=== PATIENT | female | born 1995 | race Caucasian/White ===

== ENCOUNTER 2016-06-17 18:28 | Emergency (ER) | payer MEDICAID ==
[~2016-06-17] VITALS: Ht 172.7 cm; Wt 69.1 kg
[~2016-06-17 18:28] MED LIST: ANTIBIOTIC FOR ACNE; BCP TD; DEPO-PROVER400 MG/ML IM; DOXYCYCLINE 10100 MG PO; FLAGYL500 MG PO; FLEXERIL 1010 MG/TAB PO; NAPROSYN500 MG PO; NORCO 325 MG-51 TAB PO; NORCO 325 MG-7.1 TAB PO; PROVENTIL0.09 MG/A1 IH; ZOFRAN 4MG T4 MG/TAB PO; ZOLOFT 25MG25 MG PO; [UNRECOGNIZED DRUG - REMARK]
[2016-06-17 19:03] VITALS: TEMP 98
[2016-06-17] MEDS ORDERED: NORCO 325 MG-51 TAB PO (20:16)
[2016-06-17 20:28] VITALS: BP 120/81; PULSE 74
== END 2016-06-17 20:28 | disposition home or self-care (01) ==
LOC: COL.ER 18:28
DX: S76.012A Strain of muscle, fascia and tendon of left hip, initial encounter (principal); X58.XXXA Exposure to other specified factors, initial encounter
CPT/HCPCS: J1885

== ENCOUNTER 2016-07-26 20:40 | Emergency (ER) | payer MEDICAID ==
[~2016-07-26] VITALS: Ht 170.2 cm; Wt 75.5 kg
[2016-07-26 20:47] VITALS: TEMP 98.3
[2016-07-26] MEDS ORDERED: PRENATAL1 TA7 PO (20:51)
[2016-07-26 21:25] LABS: BASO % 0.4 % (0.0-2.0); EOS # 0.4 (0.0-0.7); GRAN # 4.3 (1.4-6.5); GRAN % 52.2 % (42.2-75.2); HEMATOCRIT 37.3 % (37.0-47.0); LYMPH # 2.9 (1.2-3.4); LYMPH % 35.7 % (20.0-51.0); MEAN CELL VOLUME 88 fl (80.0-100.0); MEAN CORPUSCULAR HEMOGLOBIN 31 pg (27.0-31.0); MEAN CORPUSCULAR HGB CONC 35 g/dl (33.0-37.0); MONO # 0.5 (0.1-0.6); MONO % 6.5 % (1.7-9.3); PLATELET COUNT 212 K/mm3 (130-400); RED BLOOD COUNT 4.22 M/mm3 (4.10-5.30); REDCELL DISTRIBUTION WIDTH-CV 12.2 % (11.5-14.5); WHITE BLOOD COUNT 8.2 K/mm3 (4.8-10.8)
[2016-07-26 21:30] LABS: PH 6 (5-8); SQUAMOUS EPITHELIAL 0-2 /hpf; URINE APPEARANCE Clear; URINE BACTERIA None Seen /hpf; URINE BILIRUBIN Negative (NEGATIVE); URINE BLOOD Negative (NEGATIVE); URINE COLOR Yellow; URINE GLUCOSE Negative (NEGATIVE); URINE KETONE Negative (NEGATIVE); URINE RBC 0-2 /hpf; URINE UROBILINOGEN Negative (NEGATIVE)
[2016-07-26 21:41] LABS: ALANINE AMINOTRANSFERASE 21 U/L (9-52); ALBUMIN 4.2 gm/dL (3.5-5.0); ALKALINE PHOSPHATASE 50 U/L (50-136); ANION GAP 11 mmol/L (7-16); BILIRUBIN,TOTAL 1.1 mg/dL (0.0-1.0); BLOOD UREA NITROGEN 6 mg/dL (7-17); C-REACTIVE PROTEIN < 0.5 mg/dL (0.0-0.9); CALCIUM 9.2 mg/dL (8.4-10.2); CARBON DIOXIDE 27 mmol/L (22-30); CHLORIDE 101 mmol/L (98-107); CREATININE, serum 0.71 mg/dL (0.52-1.25); GLUCOSE 75 mg/dL (74-106); POTASSIUM 3.5 mmol/L (3.4-5.0); SODIUM 139 mmol/L (137-145); TOTAL PROTEIN 7.4 gm/dL (6.4-8.2)
[2016-07-26 23:21] VITALS: BP 119/64; PULSE 88
[2016-07-27 01:47] LABS: CHLAMYDIA/TRACH by PCR Female NOT DETECTED; NEISSERIA GON by PCR Female NOT DETECTED
== END 2016-07-26 23:22 | disposition home or self-care (01) ==
LOC: COL.ER 20:40
PROVIDERS: Emergency Medicine
DX: O26.891 Other specified pregnancy related conditions, first trimester (principal); Z3A.01 Less than 8 weeks gestation of pregnancy; R10.2 Pelvic and perineal pain; O34.81 Maternal care for other abnormalities of pelvic organs, first trimester; N83.202 Unspecified ovarian cyst, left side

== ENCOUNTER 2016-08-14 21:51 | Emergency (ER) | payer MEDICAID ==
[~2016-08-14] VITALS: Ht 170.2 cm; Wt 75.5 kg
[~2016-08-14 21:51] MED LIST changes: +PRENATAL1 TA7 PO
[2016-08-14 21:54] VITALS: TEMP 98
[2016-08-14 22:28] LABS: BASO % 0.2 % (0.0-2.0); EOS # 0.2 (0.0-0.7); EOS % 1.9 % (0-4.0); GRAN # 5.5 (1.4-6.5); GRAN % 56.1 % (42.2-75.2); HEMOGLOBIN 13.5 g/dl (12.5-16.0); LYMPH # 3.5 (1.2-3.4); LYMPH % 35.7 % (20.0-51.0); MEAN CELL VOLUME 86 fl (80.0-100.0); MEAN CORPUSCULAR HEMOGLOBIN 31 pg (27.0-31.0); MEAN CORPUSCULAR HGB CONC 36 g/dl (33.0-37.0); MEAN PLATELET VOLUME 10.3 fl (7.4-10.4); MONO # 0.6 (0.1-0.6); MONO % 5.8 % (1.7-9.3); PLATELET COUNT 194 K/mm3 (130-400); REDCELL DISTRIBUTION WIDTH-CV 11.8 % (11.5-14.5); WHITE BLOOD COUNT 9.7 K/mm3 (4.8-10.8)
[2016-08-14 22:38] LABS: PH 6 (5-8); URINE APPEARANCE Clear; URINE BACTERIA None Seen /hpf; URINE BILIRUBIN Negative (NEGATIVE); URINE BLOOD Negative (NEGATIVE); URINE COLOR Yellow; URINE GLUCOSE Negative (NEGATIVE); URINE KETONE Negative (NEGATIVE); URINE RBC 0-2 /hpf
[2016-08-14 22:42] LABS: ADJUSTED CALCIUM 9.1 mg/dL (8.4-10.2); ALBUMIN 4.1 gm/dL (3.5-5.0); BILIRUBIN,TOTAL 1.1 mg/dL (0.0-1.0); CALCIUM 9.2 mg/dL (8.4-10.2); CREATININE, serum 0.6 mg/dL (0.52-1.25); POTASSIUM 3.7 mmol/L (3.4-5.0); TOTAL PROTEIN 7.3 gm/dL (6.4-8.2)
[2016-08-14 23:57] VITALS: BP 110/69; PULSE 60
[2016-08-15 01:29] LABS: CHLAMYDIA/TRACH by PCR Female NOT DETECTED; NEISSERIA GON by PCR Female NOT DETECTED
== END 2016-08-14 23:58 | disposition home or self-care (01) ==
LOC: COL.ER 21:51
PROVIDERS: Nurse Practitioner
DX: O26.891 Other specified pregnancy related conditions, first trimester (principal); R10.2 Pelvic and perineal pain; R10.31 Right lower quadrant pain; O99.511 Diseases of the respiratory system complicating pregnancy, first trimester; J45.909 Unspecified asthma, uncomplicated; O21.9 Vomiting of pregnancy, unspecified; Z3A.08 8 weeks gestation of pregnancy
CPT/HCPCS: J2550; J7030

== ENCOUNTER 2016-10-30 13:32 | Emergency (ER) | payer MEDICAID ==
[~2016-10-30] VITALS: Ht 170.2 cm; Wt 68.2 kg
[2016-10-30 13:37] VITALS: BP 109/67; PULSE 70; TEMP 98
[2016-10-30] MEDS ORDERED: MACROBID 1100 MG/CAP PO (13:41)
[2016-10-30 14:31] LABS: BASO % 0.3 % (0.0-2.0); EOS # 0.1 (0.0-0.7); EOS % 1.8 % (0-4.0); GRAN # 5.3 (1.4-6.5); GRAN % 71.5 % (42.2-75.2); HEMATOCRIT 34.2 % (37.0-47.0); HEMOGLOBIN 12.1 g/dl (12.5-16.0); LYMPH # 1.6 (1.2-3.4); LYMPH % 21.3 % (20.0-51.0); MEAN CELL VOLUME 88 fl (80.0-100.0); MEAN CORPUSCULAR HEMOGLOBIN 31 pg (27.0-31.0); MEAN CORPUSCULAR HGB CONC 35 g/dl (33.0-37.0); MEAN PLATELET VOLUME 10.5 fl (7.4-10.4); MONO # 0.4 (0.1-0.6); MONO % 4.7 % (1.7-9.3); PLATELET COUNT 180 K/mm3 (130-400); RED BLOOD COUNT 3.89 M/mm3 (4.10-5.30); WHITE BLOOD COUNT 7.4 K/mm3 (4.8-10.8)
[2016-10-30 14:33] LABS: PH 7 (5-8); SQUAMOUS EPITHELIAL 0-2 /hpf; URINE APPEARANCE Clear; URINE BACTERIA Rare /hpf; URINE BILIRUBIN Negative (NEGATIVE); URINE BLOOD Negative (NEGATIVE); URINE COLOR Yellow; URINE GLUCOSE Negative (NEGATIVE); URINE KETONE Negative (NEGATIVE); URINE RBC 0-2 /hpf; URINE UROBILINOGEN Negative (NEGATIVE); URINE WBC 0-2 /hpf
[2016-10-30 14:54] LABS: ADJUSTED CALCIUM 9.3 mg/dL (8.4-10.2); ALBUMIN 3.7 gm/dL (3.5-5.0); BILIRUBIN,TOTAL 0.9 mg/dL (0.0-1.0); CALCIUM 9.1 mg/dL (8.4-10.2); CREATININE, serum 0.51 mg/dL (0.52-1.25); POTASSIUM 3.9 mmol/L (3.4-5.0); TOTAL PROTEIN 7.1 gm/dL (6.4-8.2)
== END 2016-10-30 16:51 | disposition home or self-care (01) ==
LOC: COL.ER 13:32
PROVIDERS: Family Medicine
DX: O26.892 Other specified pregnancy related conditions, second trimester (principal); R10.2 Pelvic and perineal pain; Z3A.18 18 weeks gestation of pregnancy
CPT/HCPCS: J7030

== ENCOUNTER 2016-11-04 14:57 | Emergency (ER) | payer MEDICAID ==
[~2016-11-04] VITALS: Ht 170.2 cm; Wt 68.2 kg
[~2016-11-04 14:57] MED LIST changes: +MACROBID 1100 MG/CAP PO
[2016-11-04 15:00] VITALS: BP 130/61; TEMP 97.9
[2016-11-04 16:01] LABS: PH 7 (5-8); SQUAMOUS EPITHELIAL 0-2 /hpf; URINE APPEARANCE Hazy; URINE BACTERIA None Seen /hpf; URINE BILIRUBIN Negative (NEGATIVE); URINE BLOOD Negative (NEGATIVE); URINE COLOR Yellow; URINE GLUCOSE Negative (NEGATIVE); URINE KETONE Negative (NEGATIVE); URINE RBC 0-2 /hpf; URINE UROBILINOGEN Negative (NEGATIVE)
[2016-11-04 16:15] VITALS: PULSE 65
== END 2016-11-04 16:16 | disposition home or self-care (01) ==
LOC: COL.ER 14:57
PROVIDERS: Physician Assistant
DX: O26.892 Other specified pregnancy related conditions, second trimester (principal); R10.2 Pelvic and perineal pain; Z3A.19 19 weeks gestation of pregnancy

== ENCOUNTER 2016-11-22 18:39 | Emergency (ER) | payer MEDICAID ==
[~2016-11-22] VITALS: Ht 170.2 cm; Wt 70.0 kg
[2016-11-22 18:41] VITALS: TEMP 97.7
[2016-11-22 19:17] LABS: BASO % 0.3 % (0.0-2.0); EOS # 0.1 (0.0-0.7); EOS % 1.1 % (0-4.0); GRAN # 6.9 (1.4-6.5); GRAN % 70.8 % (42.2-75.2); HEMOGLOBIN 12.1 g/dl (12.5-16.0); LYMPH # 2.2 (1.2-3.4); LYMPH % 22.3 % (20.0-51.0); MEAN CELL VOLUME 90 fl (80.0-100.0); MEAN CORPUSCULAR HEMOGLOBIN 32 pg (27.0-31.0); MEAN CORPUSCULAR HGB CONC 36 g/dl (33.0-37.0); MEAN PLATELET VOLUME 10.7 fl (7.4-10.4); MONO # 0.5 (0.1-0.6); MONO % 5.2 % (1.7-9.3); PLATELET COUNT 199 K/mm3 (130-400); RED BLOOD COUNT 3.78 M/mm3 (4.10-5.30); REDCELL DISTRIBUTION WIDTH-CV 13.3 % (11.5-14.5); WHITE BLOOD COUNT 9.8 K/mm3 (4.8-10.8)
[2016-11-22 19:19] LABS: HEMATOCRIT 34.1 % (37.0-47.0)
[2016-11-22 19:56] LABS: ADJUSTED CALCIUM 9.3 mg/dL (8.4-10.2); ALBUMIN 3.7 gm/dL (3.5-5.0); BILIRUBIN,TOTAL 0.9 mg/dL (0.0-1.0); C-REACTIVE PROTEIN 0.6 mg/dL (0.0-0.9); CALCIUM 9.1 mg/dL (8.4-10.2); CREATININE, serum 0.51 mg/dL (0.52-1.25); POTASSIUM 3.5 mmol/L (3.4-5.0); TOTAL PROTEIN 7.2 gm/dL (6.4-8.2)
[2016-11-22 20:31] LABS: PH 5 (5-8); SQUAMOUS EPITHELIAL 0-2 /hpf; URINE APPEARANCE Clear; URINE BACTERIA None Seen /hpf; URINE BILIRUBIN Negative (NEGATIVE); URINE BLOOD Negative (NEGATIVE); URINE COLOR Yellow; URINE GLUCOSE Negative (NEGATIVE); URINE KETONE Negative (NEGATIVE); URINE RBC 0-2 /hpf; URINE UROBILINOGEN Negative (NEGATIVE)
[2016-11-22] MEDS ORDERED: FLEXERIL5 MG PO (20:50)
[2016-11-22 21:00] VITALS: BP 102/69; PULSE 68
== END 2016-11-22 21:05 | disposition home or self-care (01) ==
LOC: COL.ER 18:39
PROVIDERS: Emergency Medicine
DX: O46.92 Antepartum hemorrhage, unspecified, second trimester (principal); O26.892 Other specified pregnancy related conditions, second trimester; M54.9 Dorsalgia, unspecified; Z3A.23 23 weeks gestation of pregnancy
CPT/HCPCS: J2270; J2405; J7030

== ENCOUNTER 2016-12-01 20:18 | Outpatient (CLI) | payer MEDICAID ==
[~2016-12-01] VITALS: Ht 170.2 cm; Wt 68.6 kg
[~2016-12-01 20:18] MED LIST changes: +FLEXERIL5 MG PO
[2016-12-01 20:51] VITALS: BP 99/56; PULSE 88; TEMP 97.6
[2016-12-01] MEDS ORDERED: TYLENOL 500MG500 MG (20:55)
[2016-12-01 21:30] VITALS: BP 93/54; PULSE 71
[2016-12-01] MEDS ORDERED: FLEXERIL5 MG PO ×2 (21:51→21:52)
[2016-12-01 21:59] LABS: BASO % 0.4 % (0.0-2.0); EOS # 0.2 (0.0-0.7); EOS % 1.6 % (0-4.0); GRAN # 7.5 (1.4-6.5); GRAN % 69.4 % (42.2-75.2); HEMATOCRIT 35.7 % (37.0-47.0); HEMOGLOBIN 12.5 g/dl (12.5-16.0); LYMPH # 2.5 (1.2-3.4); LYMPH % 22.9 % (20.0-51.0); MEAN CELL VOLUME 91 fl (80.0-100.0); MEAN CORPUSCULAR HEMOGLOBIN 32 pg (27.0-31.0); MEAN CORPUSCULAR HGB CONC 35 g/dl (33.0-37.0); MEAN PLATELET VOLUME 10.4 fl (7.4-10.4); MONO # 0.6 (0.1-0.6); MONO % 5.3 % (1.7-9.3); PLATELET COUNT 206 K/mm3 (130-400); RED BLOOD COUNT 3.91 M/mm3 (4.10-5.30); REDCELL DISTRIBUTION WIDTH-CV 13.3 % (11.5-14.5); WHITE BLOOD COUNT 10.9 K/mm3 (4.8-10.8)
[2016-12-01 22:08] LABS: CALCIUM 9.2 mg/dL (8.4-10.2); CREATININE, serum 0.53 mg/dL (0.52-1.25); POTASSIUM 3.3 mmol/L (3.4-5.0)
[2016-12-01 22:19] LABS: PH 7 (5-8); URINE APPEARANCE Clear; URINE BACTERIA None Seen /hpf; URINE BILIRUBIN Negative (NEGATIVE); URINE BLOOD Negative (NEGATIVE); URINE COLOR Yellow; URINE GLUCOSE Negative (NEGATIVE); URINE KETONE Negative (NEGATIVE); URINE RBC 0-2 /hpf; URINE UROBILINOGEN Negative (NEGATIVE)
[2016-12-01 22:30] VITALS: BP 114/65; PULSE 67; TEMP 97.4
== END 2016-12-01 23:15 | disposition home or self-care (01) ==
LOC: EDSTATUS 20:18 → LDRO 20:18
PROVIDERS: Obstetrics & Gynecology
DX: O99.512 Diseases of the respiratory system complicating pregnancy, second trimester (principal); O99.89 Other specified diseases and conditions complicating pregnancy, childbirth and the puerperium; R06.02 Shortness of breath; M54.5 Low back pain; R10.9 Unspecified abdominal pain; Z3A.23 23 weeks gestation of pregnancy

== ENCOUNTER 2016-12-12 17:05 | Outpatient (CLI) | payer MEDICAID ==
[~2016-12-12] VITALS: Ht 170.2 cm; Wt 72.7 kg
[~2016-12-12 17:05] MED LIST changes: +TYLENOL 500MG500 MG
[2016-12-12] MEDS ORDERED: PYRIDIUM 100MG100 MG PO (17:12)
[2016-12-12] MEDS ORDERED: MACROBID 1100 MG/CAP PO (17:12)
[2016-12-12 17:13] VITALS: BP 106/67; PULSE 81; TEMP 97.7
== END 2016-12-12 18:00 | disposition home or self-care (01) ==
LOC: LDRO 17:05
DX: Z34.82 Encounter for supervision of other normal pregnancy, second trimester (principal); Z3A.24 24 weeks gestation of pregnancy

== ENCOUNTER 2016-12-14 21:24 | Outpatient (CLI) | payer MEDICAID ==
[~2016-12-14] VITALS: Ht 170.2 cm; Wt 72.7 kg
[~2016-12-14 21:24] MED LIST changes: +PYRIDIUM 100MG100 MG PO
[2016-12-14 22:39] LABS: BASO % 0.2 % (0.0-2.0); EOS # 0.2 (0.0-0.7); EOS % 1.9 % (0-4.0); GRAN # 6.5 (1.4-6.5); GRAN % 68.6 % (42.2-75.2); LYMPH # 2.2 (1.2-3.4); MEAN CELL VOLUME 93 fl (80.0-100.0); MEAN CORPUSCULAR HGB CONC 35 g/dl (33.0-37.0); MEAN PLATELET VOLUME 10.7 fl (7.4-10.4); MONO # 0.6 (0.1-0.6); PLATELET COUNT 206 K/mm3 (130-400); RED BLOOD COUNT 3.56 M/mm3 (4.10-5.30); REDCELL DISTRIBUTION WIDTH-CV 12.9 % (11.5-14.5); WHITE BLOOD COUNT 9.4 K/mm3 (4.8-10.8)
[2016-12-14 22:40] LABS: HEMOGLOBIN 11.4 g/dl (12.5-16.0); MEAN CORPUSCULAR HEMOGLOBIN 32 pg (27.0-31.0)
[2016-12-14 22:56] VITALS: BP 94/59; PULSE 80; TEMP 97.9
[2016-12-14 22:56] LABS: ADJUSTED CALCIUM 9.3 mg/dL (8.4-10.2); ALBUMIN 3.6 gm/dL (3.5-5.0); BILIRUBIN,TOTAL 0.6 mg/dL (0.0-1.0); CREATININE, serum 0.51 mg/dL (0.52-1.25); POTASSIUM 3.7 mmol/L (3.4-5.0)
[2016-12-14 23:05] LABS: PH 5 (5-8); SQUAMOUS EPITHELIAL 0-2 /hpf; URINE APPEARANCE Clear; URINE BACTERIA None Seen /hpf; URINE BILIRUBIN Negative (NEGATIVE); URINE BLOOD Negative (NEGATIVE); URINE COLOR Amber; URINE GLUCOSE Negative (NEGATIVE); URINE KETONE Negative (NEGATIVE); URINE RBC 0-2 /hpf; URINE UROBILINOGEN >=4.0 mg/dL (NEGATIVE)
[2016-12-14 23:38] VITALS: TEMP 98
== END 2016-12-14 23:50 | disposition home or self-care (01) ==
LOC: LDRO 21:24
PROVIDERS: Obstetrics & Gynecology
DX: O26.892 Other specified pregnancy related conditions, second trimester (principal); M54.9 Dorsalgia, unspecified; Z3A.25 25 weeks gestation of pregnancy
CPT/HCPCS: J7120

== ENCOUNTER 2016-12-25 16:01 | Outpatient (CLI) | payer MEDICAID ==
[~2016-12-25] VITALS: Ht 170.2 cm; Wt 73.6 kg
[2016-12-25 16:08] VITALS: BP 129/70; PULSE 80; TEMP 97.6
[2016-12-25 17:00] VITALS: BP 129/70; PULSE 80; TEMP 97.6
[2016-12-25 17:05] LABS: PH 6 (5-8); SQUAMOUS EPITHELIAL 0-2 /hpf; URINE APPEARANCE Hazy; URINE BACTERIA Rare /hpf; URINE BILIRUBIN Negative (NEGATIVE); URINE BLOOD Negative (NEGATIVE); URINE COLOR Yellow; URINE GLUCOSE 1+ (NEGATIVE); URINE KETONE Negative (NEGATIVE); URINE RBC 0-2 /hpf
[2016-12-25 17:30] VITALS: BP 102/61; PULSE 61
== END 2016-12-25 17:05 | disposition home or self-care (01) ==
LOC: LDRO 16:01 → LDR 16:05 → LDRO 17:05
PROVIDERS: Obstetrics & Gynecology
DX: O26.892 Other specified pregnancy related conditions, second trimester (principal); R10.9 Unspecified abdominal pain; Z3A.26 26 weeks gestation of pregnancy
CPT/HCPCS: OP; J0702

== ENCOUNTER 2016-12-26 16:21 | Outpatient (CLI) | payer MEDICAID ==
[~2016-12-26] VITALS: Ht 170.2 cm; Wt 73.6 kg
[2016-12-26 17:02] VITALS: BP 112/76; PULSE 81; TEMP 97.8
[2016-12-26 17:12] LABS: BASO % 0.2 % (0.0-2.0); EOS % 0.1 % (0-4.0); GRAN # 12.6 (1.4-6.5); GRAN % 80.2 % (42.2-75.2); LYMPH # 2.1 (1.2-3.4); LYMPH % 13.1 % (20.0-51.0); MEAN CELL VOLUME 93 fl (80.0-100.0); MEAN CORPUSCULAR HGB CONC 35 g/dl (33.0-37.0); MONO # 0.9 (0.1-0.6); MONO % 5.8 % (1.7-9.3); PLATELET COUNT 205 K/mm3 (130-400); RED BLOOD COUNT 3.68 M/mm3 (4.10-5.30); REDCELL DISTRIBUTION WIDTH-CV 12.6 % (11.5-14.5); WHITE BLOOD COUNT 15.7 K/mm3 (4.8-10.8)
[2016-12-26 17:22] LABS: HEMATOCRIT 34.3 % (37.0-47.0); HEMOGLOBIN 11.9 g/dl (12.5-16.0); MEAN CORPUSCULAR HEMOGLOBIN 32 pg (27.0-31.0)
[2016-12-26 17:24] LABS: ADJUSTED CALCIUM 9.4 mg/dL (8.4-10.2); ALBUMIN 3.7 gm/dL (3.5-5.0); BILIRUBIN,TOTAL 0.8 mg/dL (0.0-1.0); CALCIUM 9.2 mg/dL (8.4-10.2); CREATININE, serum 0.49 mg/dL (0.52-1.25); POTASSIUM 3.6 mmol/L (3.4-5.0); TOTAL PROTEIN 7.4 gm/dL (6.4-8.2)
[2016-12-26 17:30] VITALS: BP 128/64; PULSE 140
[2016-12-26 18:10] VITALS: BP 120/70; PULSE 81
== END 2016-12-26 18:15 | disposition critical access hospital (66) ==
LOC: LDRO 16:21
PROVIDERS: Obstetrics & Gynecology
DX: O62.2 Other uterine inertia (principal); Z3A.26 26 weeks gestation of pregnancy
CPT/HCPCS: J0290; J0702; J7120

== ENCOUNTER 2016-12-31 20:22 | Outpatient (CLI) | payer MEDICAID ==
[~2016-12-31] VITALS: Ht 170.2 cm; Wt 74.5 kg
[2016-12-31 20:40] VITALS: BP 110/63; PULSE 85; TEMP 97.8
[2016-12-31] MEDS ORDERED: TYLENOL 325MG325 MG PO (21:01)
[2016-12-31 21:34] VITALS: BP 110/63; PULSE 85; TEMP 97.8
== END 2016-12-31 21:10 | disposition home or self-care (01) ==
LOC: LDRO 20:22
DX: Z34.02 Encounter for supervision of normal first pregnancy, second trimester (principal); Z3A.27 27 weeks gestation of pregnancy

== ENCOUNTER 2017-01-08 17:43 | Outpatient (CLI) | payer MEDICAID ==
[~2017-01-08] VITALS: Ht 170.2 cm; Wt 73.6 kg
[~2017-01-08 17:43] MED LIST changes: +TYLENOL 325MG325 MG PO
[2017-01-08 18:05] VITALS: BP 112/65; PULSE 83
[2017-01-08 19:20] VITALS: BP 109/64; PULSE 70
== END 2017-01-08 19:45 | disposition home or self-care (01) ==
LOC: LDRO 17:43
DX: O62.9 Abnormality of forces of labor, unspecified (principal); Z3A.28 28 weeks gestation of pregnancy

== ENCOUNTER 2017-01-11 17:38 | Outpatient (CLI) | payer MEDICAID ==
[~2017-01-11] VITALS: Ht 170.2 cm; Wt 73.5 kg
[2017-01-11 18:17] VITALS: BP 111/71; PULSE 93; TEMP 98.2
== END 2017-01-11 18:40 | disposition home or self-care (01) ==
LOC: LDRO 17:38
DX: Z34.03 Encounter for supervision of normal first pregnancy, third trimester (principal); Z3A.29 29 weeks gestation of pregnancy

== ENCOUNTER 2017-03-21 16:52 | Emergency (ER) | payer MEDICAID ==
[~2017-03-21] VITALS: Ht 170.2 cm; Wt 72.7 kg
[2017-03-21 16:56] VITALS: TEMP 97.8
[2017-03-21 19:05] LABS: BASO % 0.5 % (0.0-2.0); EOS # 0.2 (0.0-0.7); EOS % 3.6 % (0-4.0); GRAN # 2.9 (1.4-6.5); HEMATOCRIT 37.1 % (37.0-47.0); HEMOGLOBIN 12.3 g/dl (12.5-16.0); LYMPH # 2.8 (1.2-3.4); MEAN CELL VOLUME 90 fl (80.0-100.0); MEAN CORPUSCULAR HEMOGLOBIN 30 pg (27.0-31.0); MEAN CORPUSCULAR HGB CONC 33 g/dl (33.0-37.0); MEAN PLATELET VOLUME 10.1 fl (7.4-10.4); MONO # 0.4 (0.1-0.6); MONO % 6.7 % (1.7-9.3); PLATELET COUNT 205 K/mm3 (130-400); RED BLOOD COUNT 4.12 M/mm3 (4.10-5.30); WHITE BLOOD COUNT 6.5 K/mm3 (4.8-10.8)
[2017-03-21 19:28] LABS: ADJUSTED CALCIUM 9.3 mg/dL (8.4-10.2); ALANINE AMINOTRANSFERASE 22 U/L (9-52); ALBUMIN 3.9 gm/dL (3.5-5.0); ALKALINE PHOSPHATASE 66 U/L (50-136); ANION GAP 8 mmol/L (7-16); BILIRUBIN,TOTAL 1.1 mg/dL (0.0-1.0); BLOOD UREA NITROGEN 7 mg/dL (7-17); C-REACTIVE PROTEIN < 0.5 mg/dL (0.0-0.9); CALCIUM 9.2 mg/dL (8.4-10.2); CARBON DIOXIDE 24 mmol/L (22-30); CHLORIDE 107 mmol/L (98-107); CREATININE, serum 0.72 mg/dL (0.52-1.25); GLUCOSE 87 mg/dL (74-106); POTASSIUM 3.9 mmol/L (3.4-5.0); SODIUM 139 mmol/L (137-145); TOTAL PROTEIN 7.3 gm/dL (6.4-8.2)
[2017-03-21 20:22] LABS: COLLECTION METHOD CLEAN CATCH
[2017-03-21 20:29] LABS: PH 6 (5-8); SQUAMOUS EPITHELIAL 0-2 /hpf; URINE APPEARANCE Clear; URINE BACTERIA None Seen /hpf; URINE BILIRUBIN Negative (NEGATIVE); URINE BLOOD Negative (NEGATIVE); URINE COLOR Yellow; URINE GLUCOSE Negative (NEGATIVE); URINE KETONE Negative (NEGATIVE); URINE LEUKOCYTE ESTERASE Negative (NEGATIVE); URINE PROTEIN(semi-quant) Negative (NEGATIVE); URINE RBC 0-2 /hpf; URINE UROBILINOGEN Negative (NEGATIVE)
[2017-03-21] MEDS ORDERED: ZOFRAN 4MG T4 MG/TAB PO (23:02)
[2017-03-21] MEDS ORDERED: NORCO 325 MG-51 TAB PO (23:02)
[2017-03-21 23:18] VITALS: BP 115/68; PULSE 56
== END 2017-03-21 23:18 | disposition home or self-care (01) ==
LOC: COL.ER 16:52
PROVIDERS: Emergency Medicine
DX: N93.9 Abnormal uterine and vaginal bleeding, unspecified (principal); R10.31 Right lower quadrant pain; F32.9 Major depressive disorder, single episode, unspecified; F41.9 Anxiety disorder, unspecified
CPT/HCPCS: J2405; J3010; J7030

== ENCOUNTER 2017-05-11 18:47 | Emergency (ER) | payer MEDICAID ==
[~2017-05-11] VITALS: Ht 170.2 cm; Wt 73.5 kg
[2017-05-11 18:48] VITALS: BP 129/79; TEMP 98
[2017-05-11] MEDS ORDERED: ZOLOFT 100MG100 MG PO (18:53)
[2017-05-11] MEDS ORDERED: [UNRECOGNIZED DRUG - REMARK] (18:55)
[2017-05-11] MEDS ORDERED: ASPERCREME1 EACH TP (19:25)
[2017-05-11] MEDS ORDERED: TYLENOL W/COD1 UDTAB PO (19:25)
[2017-05-11 19:40] VITALS: PULSE 80
== END 2017-05-11 19:42 | disposition home or self-care (01) ==
LOC: COL.ER 18:47
DX: S42.021A Displaced fracture of shaft of right clavicle, initial encounter for closed fracture (principal); J45.909 Unspecified asthma, uncomplicated; Z90.89 Acquired absence of other organs; X50.0XXA Overexertion from strenuous movement or load, initial encounter; Y92.009 Unspecified place in unspecified non-institutional (private) residence as the place of occurrence of the external cause

== ENCOUNTER 2017-06-05 22:33 | Emergency (ER) | payer SELFPAY ==
[~2017-06-05] VITALS: Ht 170.2 cm; Wt 73.6 kg
[~2017-06-05 22:33] MED LIST changes: +ASPERCREME1 EACH TP; +TYLENOL W/COD1 UDTAB PO; +ZOLOFT 100MG100 MG PO; +[UNRECOGNIZED DRUG - REMARK]
[2017-06-05 22:36] VITALS: TEMP 98.5
[2017-06-05 23:22] LABS: COLLECTION METHOD CLEAN CATCH
[2017-06-05 23:27] LABS: BASO % 0.3 % (0.0-2.0); EOS # 0.2 (0.0-0.7); EOS % 3.2 % (0-4.0); GRAN # 3.4 (1.4-6.5); GRAN % 48.2 % (42.2-75.2); HEMATOCRIT 37.8 % (37.0-47.0); HEMOGLOBIN 12.2 g/dl (12.5-16.0); LYMPH % 43.3 % (20.0-51.0); MEAN CELL VOLUME 86 fl (80.0-100.0); MEAN CORPUSCULAR HEMOGLOBIN 28 pg (27.0-31.0); MEAN CORPUSCULAR HGB CONC 32 g/dl (33.0-37.0); MEAN PLATELET VOLUME 10.4 fl (7.4-10.4); MONO # 0.3 (0.1-0.6); MONO % 4.7 % (1.7-9.3); PLATELET COUNT 233 K/mm3 (130-400); RED BLOOD COUNT 4.41 M/mm3 (4.10-5.30); REDCELL DISTRIBUTION WIDTH-CV 12.9 % (11.5-14.5)
[2017-06-05 23:32] LABS: PH 5 (5-8); URINE APPEARANCE Hazy; URINE BACTERIA None Seen /hpf; URINE BILIRUBIN Negative (NEGATIVE); URINE BLOOD Negative (NEGATIVE); URINE COLOR Yellow; URINE GLUCOSE Negative (NEGATIVE); URINE KETONE Negative (NEGATIVE); URINE LEUKOCYTE ESTERASE Trace (NEGATIVE); URINE NITRATE Negative (NEGATIVE); URINE PROTEIN(semi-quant) Negative (NEGATIVE); URINE RBC 0-2 /hpf
[2017-06-05 23:38] LABS: ALBUMIN 4.8 gm/dL (3.5-5.0); BILIRUBIN,TOTAL 0.5 mg/dL (0.0-1.0); CREATININE, serum 0.76 mg/dL (0.52-1.25); POTASSIUM 3.5 mmol/L (3.4-5.0); TOTAL PROTEIN 8.3 gm/dL (6.4-8.2)
[2017-06-06 00:15] VITALS: BP 126/68; PULSE 76
== END 2017-06-06 00:25 | disposition home or self-care (01) ==
LOC: COL.ER 22:33
PROVIDERS: Physician Assistant
DX: S42.021A Displaced fracture of shaft of right clavicle, initial encounter for closed fracture (principal); Z90.89 Acquired absence of other organs; Z98.890 Other specified postprocedural states; X50.0XXA Overexertion from strenuous movement or load, initial encounter

== ENCOUNTER 2017-06-26 23:41 | Emergency (ER) | payer SELFPAY ==
[~2017-06-26] VITALS: Ht 170.2 cm; Wt 73.6 kg
[2017-06-27 00:37] VITALS: BP 132/69; TEMP 98
[2017-06-27 02:08] VITALS: PULSE 78
== END 2017-06-27 02:15 | disposition home or self-care (01) ==
LOC: COL.ER 23:41
DX: J06.9 Acute upper respiratory infection, unspecified (principal); F32.9 Major depressive disorder, single episode, unspecified
CPT/HCPCS: J2405; J7030

== ENCOUNTER 2017-07-14 23:23 | Emergency (ER) | payer SELFPAY ==
[~2017-07-14] VITALS: Ht 170.2 cm; Wt 77.7 kg
[2017-07-14 23:26] VITALS: BP 127/69; TEMP 97.6
[2017-07-14 23:59] LABS: COLLECTION METHOD CLEAN CATCH
[2017-07-15 00:13] LABS: MUCOUS Present /lpf; PH 6 (5-8); SQUAMOUS EPITHELIAL 0-2 /hpf; URINE APPEARANCE Hazy; URINE BACTERIA None Seen /hpf; URINE BILIRUBIN Negative (NEGATIVE); URINE BLOOD Negative (NEGATIVE); URINE COLOR Yellow; URINE GLUCOSE Negative (NEGATIVE); URINE KETONE Negative (NEGATIVE); URINE LEUKOCYTE ESTERASE Trace (NEGATIVE); URINE NITRATE Negative (NEGATIVE); URINE PROTEIN(semi-quant) Negative (NEGATIVE); URINE RBC 0-2 /hpf
[2017-07-15 02:46] VITALS: PULSE 86
== END 2017-07-15 02:46 | disposition home or self-care (01) ==
LOC: COL.ER 23:23
PROVIDERS: Emergency Medicine
DX: O26.891 Other specified pregnancy related conditions, first trimester (principal); R10.31 Right lower quadrant pain; Z3A.10 10 weeks gestation of pregnancy; Z90.89 Acquired absence of other organs; Z98.890 Other specified postprocedural states

== ENCOUNTER 2017-08-02 18:21 | Emergency (ER) | payer MEDICAID ==
[~2017-08-02] VITALS: Ht 170.2 cm; Wt 77.3 kg
[2017-08-02 19:14] LABS: COLLECTION METHOD CLEAN CATCH
[2017-08-02 19:20] LABS: MUCOUS Present /lpf; PH 5 (5-8); SQUAMOUS EPITHELIAL 0-2 /hpf; URINE APPEARANCE Clear; URINE BACTERIA None Seen /hpf; URINE BILIRUBIN Negative (NEGATIVE); URINE BLOOD 3+ (NEGATIVE); URINE COLOR Yellow; URINE GLUCOSE Negative (NEGATIVE); URINE KETONE Negative (NEGATIVE); URINE LEUKOCYTE ESTERASE Negative (NEGATIVE); URINE NITRATE Negative (NEGATIVE); URINE PROTEIN(semi-quant) Negative (NEGATIVE); URINE UROBILINOGEN Negative (NEGATIVE)
[2017-08-02 19:44] LABS: BASO % 0.3 % (0.0-2.0); EOS # 0.1 (0.0-0.7); EOS % 1.5 % (0-4.0); GRAN # 4.1 (1.4-6.5); GRAN % 60.3 % (42.2-75.2); HEMOGLOBIN 10.8 g/dl (12.5-16.0); LYMPH # 2.2 (1.2-3.4); LYMPH % 32.5 % (20.0-51.0); MEAN CELL VOLUME 84 fl (80.0-100.0); MEAN CORPUSCULAR HEMOGLOBIN 28 pg (27.0-31.0); MEAN CORPUSCULAR HGB CONC 33 g/dl (33.0-37.0); MEAN PLATELET VOLUME 10.4 fl (7.4-10.4); MONO # 0.3 (0.1-0.6); MONO % 5.1 % (1.7-9.3); PLATELET COUNT 197 K/mm3 (130-400); RED BLOOD COUNT 3.89 M/mm3 (4.10-5.30); REDCELL DISTRIBUTION WIDTH-CV 14.1 % (11.5-14.5)
[2017-08-02 19:45] LABS: HEMATOCRIT 32.6 % (37.0-47.0)
[2017-08-02 19:46] VITALS: TEMP 97.8
[2017-08-02 22:18] VITALS: BP 103/71; PULSE 68
== END 2017-08-02 22:19 | disposition home or self-care (01) ==
LOC: COL.ER 18:21
PROVIDERS: Nurse Practitioner
DX: O46.91 Antepartum hemorrhage, unspecified, first trimester (principal); O99.341 Other mental disorders complicating pregnancy, first trimester; F41.9 Anxiety disorder, unspecified; F32.9 Major depressive disorder, single episode, unspecified; Z98.890 Other specified postprocedural states; Z90.89 Acquired absence of other organs; Z3A.01 Less than 8 weeks gestation of pregnancy

== ENCOUNTER 2017-08-16 15:02 | Emergency (ER) | payer MEDICAID ==
[~2017-08-16] VITALS: Ht 170.2 cm; Wt 75.0 kg
[2017-08-16 15:05] VITALS: TEMP 97.1
[2017-08-16 15:44] LABS: BASO % 0.3 % (0.0-2.0); EOS # 0.1 (0.0-0.7); GRAN # 3.9 (1.4-6.5); GRAN % 61.1 % (42.2-75.2); HEMATOCRIT 35.2 % (37.0-47.0); HEMOGLOBIN 11.8 g/dl (12.5-16.0); LYMPH % 30.4 % (20.0-51.0); MEAN CELL VOLUME 82 fl (80.0-100.0); MEAN CORPUSCULAR HEMOGLOBIN 27 pg (27.0-31.0); MEAN CORPUSCULAR HGB CONC 34 g/dl (33.0-37.0); MEAN PLATELET VOLUME 10.5 fl (7.4-10.4); MONO # 0.4 (0.1-0.6); MONO % 5.9 % (1.7-9.3); PLATELET COUNT 221 K/mm3 (130-400); RED BLOOD COUNT 4.31 M/mm3 (4.10-5.30); REDCELL DISTRIBUTION WIDTH-CV 13.6 % (11.5-14.5)
[2017-08-16 16:53] VITALS: BP 132/62; PULSE 78
== END 2017-08-16 16:53 | disposition home or self-care (01) ==
LOC: COL.ER 15:02
PROVIDERS: Physician Assistant
DX: O20.0 Threatened abortion (principal); O99.341 Other mental disorders complicating pregnancy, first trimester; F32.9 Major depressive disorder, single episode, unspecified; F41.9 Anxiety disorder, unspecified; Z3A.10 10 weeks gestation of pregnancy; Z98.890 Other specified postprocedural states

== ENCOUNTER 2017-08-23 13:40 | Outpatient (RCR) | payer OTHER ==
[2017-09-05] MEDS ORDERED: MACROBID 1100 MG/CAP PO (21:38)
[2017-09-24] MEDS ORDERED: CEPHALEXIN250 M1 PO (15:44)
[2017-09-24] MEDS ORDERED: NORCO 325 MG-51 TAB PO (15:45)
[2017-09-24] MEDS ORDERED: PHENERGAN25 MG RC (17:27)
[2017-10-10] MEDS ORDERED: PULMICORT180 MCG/Ac IH (14:39)
[2017-10-10] MEDS ORDERED: PROAIR HFA0.09 MG/AC IH (14:39)
[2017-10-10] MEDS ORDERED: ZOLOFT 100MG100 MG PO (14:39)
== END 2017-10-09 14:40 | disposition home or self-care (01) ==
LOC: WSPT 13:40
DX: Z02.71 Encounter for disability determination (principal)

== ENCOUNTER 2017-09-05 20:29 | Emergency (ER) | payer MEDICAID ==
[2017-09-05 20:31] VITALS: TEMP 98.2
[2017-09-05 21:02] LABS: BASO % 0.3 % (0.0-2.0); EOS # 0.1 (0.0-0.7); EOS % 1.5 % (0-4.0); GRAN # 4.6 (1.4-6.5); GRAN % 60.3 % (42.2-75.2); HEMOGLOBIN 12.1 g/dl (12.5-16.0); LYMPH # 2.4 (1.2-3.4); LYMPH % 31.5 % (20.0-51.0); MEAN CELL VOLUME 82 fl (80.0-100.0); MEAN CORPUSCULAR HEMOGLOBIN 27 pg (27.0-31.0); MEAN CORPUSCULAR HGB CONC 33 g/dl (33.0-37.0); MEAN PLATELET VOLUME 10.6 fl (7.4-10.4); MONO # 0.5 (0.1-0.6); MONO % 6.1 % (1.7-9.3); PLATELET COUNT 219 K/mm3 (130-400); RED BLOOD COUNT 4.43 M/mm3 (4.10-5.30); REDCELL DISTRIBUTION WIDTH-CV 13.2 % (11.5-14.5)
[2017-09-05 21:03] LABS: ALBUMIN 3.9 gm/dL (3.5-5.0); BILIRUBIN,TOTAL 0.9 mg/dL (0.0-1.0); CALCIUM 9.2 mg/dL (8.4-10.2); CREATININE, serum 0.63 mg/dL (0.52-1.25); POTASSIUM 3.5 mmol/L (3.4-5.0); TOTAL PROTEIN 8.2 gm/dL (6.4-8.2)
[2017-09-05 21:07] LABS: HEMATOCRIT 36.2 % (37.0-47.0)
[2017-09-05 21:13] LABS: COLLECTION METHOD CLEAN CATCH
[2017-09-05 21:21] LABS: MUCOUS Present /lpf; PH 5 (5-8); URINE APPEARANCE Hazy; URINE BACTERIA Rare /hpf; URINE BILIRUBIN Negative (NEGATIVE); URINE BLOOD Negative (NEGATIVE); URINE COLOR Yellow; URINE GLUCOSE Negative (NEGATIVE); URINE KETONE Trace (NEGATIVE); URINE LEUKOCYTE ESTERASE 1+ (NEGATIVE); URINE NITRATE Negative (NEGATIVE); URINE PROTEIN(semi-quant) Negative (NEGATIVE); URINE RBC 0-2 /hpf
[2017-09-05] MEDS ORDERED: MACROBID 1100 MG/CAP PO (21:38)
[2017-09-05 22:25] VITALS: BP 114/64; PULSE 72
== END 2017-09-05 22:30 | disposition home or self-care (01) ==
LOC: COL.ER 20:29
PROVIDERS: Emergency Medicine
DX: O23.41 Unspecified infection of urinary tract in pregnancy, first trimester (principal); Z3A.11 11 weeks gestation of pregnancy
CPT/HCPCS: J0696; J7030

== ENCOUNTER 2017-09-22 00:11 | Emergency (ER) | payer MEDICAID ==
[~2017-09-22] VITALS: Ht 170.2 cm; Wt 70.9 kg
[2017-09-22 00:13] VITALS: TEMP 97.6
[2017-09-22 00:38] LABS: BASO % 0.3 % (0.0-2.0); EOS # 0.3 (0.0-0.7); EOS % 3.4 % (0-4.0); GRAN % 51.3 % (42.2-75.2); HEMATOCRIT 33.2 % (37.0-47.0); HEMOGLOBIN 11.5 g/dl (12.5-16.0); LYMPH % 39.4 % (20.0-51.0); MEAN CELL VOLUME 81 fl (80.0-100.0); MEAN CORPUSCULAR HEMOGLOBIN 28 pg (27.0-31.0); MEAN CORPUSCULAR HGB CONC 35 g/dl (33.0-37.0); MEAN PLATELET VOLUME 10.7 fl (7.4-10.4); MONO # 0.4 (0.1-0.6); MONO % 5.1 % (1.7-9.3); PLATELET COUNT 215 K/mm3 (130-400); RED BLOOD COUNT 4.11 M/mm3 (4.10-5.30); REDCELL DISTRIBUTION WIDTH-CV 13.4 % (11.5-14.5)
[2017-09-22 00:49] LABS: ALBUMIN 3.7 gm/dL (3.5-5.0); BILIRUBIN,TOTAL 0.6 mg/dL (0.0-1.0); C-REACTIVE PROTEIN 0.7 mg/dL (0.0-0.9); CALCIUM 9.1 mg/dL (8.4-10.2); CREATININE, serum 0.55 mg/dL (0.52-1.25); POTASSIUM 3.8 mmol/L (3.4-5.0); TOTAL PROTEIN 7.8 gm/dL (6.4-8.2)
[2017-09-22 01:14] LABS: COLLECTION METHOD CLEAN CATCH
[2017-09-22 01:27] LABS: MUCOUS Present /lpf; PH 5 (5-8); SQUAMOUS EPITHELIAL 0-2 /hpf; URINE APPEARANCE Clear; URINE BACTERIA None Seen /hpf; URINE BILIRUBIN Negative (NEGATIVE); URINE BLOOD Negative (NEGATIVE); URINE COLOR Yellow; URINE GLUCOSE Negative (NEGATIVE); URINE KETONE Negative (NEGATIVE); URINE LEUKOCYTE ESTERASE Negative (NEGATIVE); URINE NITRATE Negative (NEGATIVE); URINE PROTEIN(semi-quant) Negative (NEGATIVE); URINE RBC 0-2 /hpf
[2017-09-22 02:36] VITALS: BP 112/70; PULSE 70
== END 2017-09-22 03:09 | disposition short-term general hospital (02) ==
LOC: COL.ER 00:11
PROVIDERS: Emergency Medicine
DX: O99.89 Other specified diseases and conditions complicating pregnancy, childbirth and the puerperium (principal); R10.2 Pelvic and perineal pain; Z3A.14 14 weeks gestation of pregnancy; Z90.89 Acquired absence of other organs
CPT/HCPCS: J1170; J2270; J2405; J3010; J7030

== ENCOUNTER 2017-09-24 15:12 | Emergency (ER) | payer MEDICAID ==
[~2017-09-24] VITALS: Ht 170.2 cm; Wt 69.1 kg
[2017-09-24 15:14] VITALS: TEMP 98.3
[2017-09-24 15:41] LABS: COLLECTION METHOD CLEAN CATCH
[2017-09-24] MEDS ORDERED: CEPHALEXIN250 M1 PO (15:44)
[2017-09-24] MEDS ORDERED: NORCO 325 MG-51 TAB PO (15:45)
[2017-09-24 15:49] LABS: BASO % 0.3 % (0.0-2.0); EOS # 0.1 (0.0-0.7); EOS % 1.3 % (0-4.0); GRAN % 59.9 % (42.2-75.2); HEMOGLOBIN 11.4 g/dl (12.5-16.0); LYMPH # 2.2 (1.2-3.4); LYMPH % 33.3 % (20.0-51.0); MEAN CELL VOLUME 81 fl (80.0-100.0); MEAN CORPUSCULAR HEMOGLOBIN 28 pg (27.0-31.0); MEAN CORPUSCULAR HGB CONC 34 g/dl (33.0-37.0); MEAN PLATELET VOLUME 10.5 fl (7.4-10.4); MONO # 0.3 (0.1-0.6); MONO % 5.1 % (1.7-9.3); PLATELET COUNT 206 K/mm3 (130-400); RED BLOOD COUNT 4.15 M/mm3 (4.10-5.30); REDCELL DISTRIBUTION WIDTH-CV 13.3 % (11.5-14.5)
[2017-09-24 15:50] LABS: HEMATOCRIT 33.6 % (37.0-47.0)
[2017-09-24 15:53] LABS: MUCOUS Present /lpf; PH 5 (5-8); URINE APPEARANCE Clear; URINE BACTERIA None Seen /hpf; URINE BILIRUBIN Negative (NEGATIVE); URINE BLOOD Negative (NEGATIVE); URINE COLOR Yellow; URINE GLUCOSE Negative (NEGATIVE); URINE KETONE 2+ (NEGATIVE); URINE LEUKOCYTE ESTERASE Negative (NEGATIVE); URINE NITRATE Negative (NEGATIVE); URINE PROTEIN(semi-quant) Negative (NEGATIVE)
[2017-09-24 15:58] LABS: ALBUMIN 3.8 gm/dL (3.5-5.0); BILIRUBIN,TOTAL 0.9 mg/dL (0.0-1.0); CALCIUM 9.2 mg/dL (8.4-10.2); CREATININE, serum 0.61 mg/dL (0.52-1.25); POTASSIUM 3.4 mmol/L (3.4-5.0); TOTAL PROTEIN 7.4 gm/dL (6.4-8.2)
[2017-09-24 16:16] LABS: C-REACTIVE PROTEIN 0.9 mg/dL (0.0-0.9)
[2017-09-24] MEDS ORDERED: PHENERGAN25 MG RC (17:27)
[2017-09-24 17:55] VITALS: BP 128/67; PULSE 68
== END 2017-09-24 17:55 | disposition home or self-care (01) ==
LOC: COL.ER 15:12
PROVIDERS: Emergency Medicine
DX: O99.89 Other specified diseases and conditions complicating pregnancy, childbirth and the puerperium (principal); R10.2 Pelvic and perineal pain; Z3A.14 14 weeks gestation of pregnancy
CPT/HCPCS: J2270; J2550; J7030

== ENCOUNTER 2017-10-10 14:28 | Emergency (ER) | payer MEDICAID ==
[~2017-10-10] VITALS: Ht 170.2 cm; Wt 69.5 kg
[~2017-10-10 14:28] MED LIST changes: +CEPHALEXIN250 M1 PO; +PHENERGAN25 MG RC
[2017-10-10 14:32] VITALS: TEMP 99.2
[2017-10-10] MEDS ORDERED: PULMICORT180 MCG/Ac IH (14:39)
[2017-10-10] MEDS ORDERED: ZOLOFT 100MG100 MG PO (14:39)
[2017-10-10] MEDS ORDERED: PROAIR HFA0.09 MG/AC IH (14:39)
[2017-10-10 15:15] LABS: BASO % 0.1 % (0.0-2.0); EOS # 0.1 (0.0-0.7); EOS % 1.8 % (0-4.0); GRAN # 4.6 (1.4-6.5); HEMOGLOBIN 11.2 g/dl (12.5-16.0); LYMPH # 2.1 (1.2-3.4); LYMPH % 29.3 % (20.0-51.0); MEAN CELL VOLUME 83 fl (80.0-100.0); MEAN CORPUSCULAR HEMOGLOBIN 28 pg (27.0-31.0); MEAN CORPUSCULAR HGB CONC 34 g/dl (33.0-37.0); MEAN PLATELET VOLUME 10.4 fl (7.4-10.4); MONO # 0.3 (0.1-0.6); MONO % 4.5 % (1.7-9.3); PLATELET COUNT 200 K/mm3 (130-400); RED BLOOD COUNT 4.03 M/mm3 (4.10-5.30)
[2017-10-10 15:25] LABS: HEMATOCRIT 33.4 % (37.0-47.0)
[2017-10-10 15:47] LABS: ALBUMIN 3.9 gm/dL (3.5-5.0); BILIRUBIN,TOTAL 0.7 mg/dL (0.0-1.0); CALCIUM 9.2 mg/dL (8.4-10.2); CREATININE, serum 0.54 mg/dL (0.52-1.25); POTASSIUM 3.8 mmol/L (3.4-5.0); TOTAL PROTEIN 7.5 gm/dL (6.4-8.2)
[2017-10-10 16:15] LABS: COLLECTION METHOD CLEAN CATCH
[2017-10-10 16:31] LABS: MUCOUS Present /lpf; PH 7 (5-8); URINE APPEARANCE Hazy; URINE BACTERIA None Seen /hpf; URINE BILIRUBIN Negative (NEGATIVE); URINE BLOOD Negative (NEGATIVE); URINE COLOR Yellow; URINE GLUCOSE Negative (NEGATIVE); URINE KETONE Negative (NEGATIVE); URINE LEUKOCYTE ESTERASE Trace (NEGATIVE); URINE NITRATE Negative (NEGATIVE); URINE PROTEIN(semi-quant) Negative (NEGATIVE); URINE RBC 0-2 /hpf; URINE UROBILINOGEN Negative (NEGATIVE)
[2017-10-10 16:59] VITALS: BP 108/71; PULSE 82
== END 2017-10-10 17:00 | disposition home or self-care (01) ==
LOC: COL.ER 14:28
PROVIDERS: Emergency Medicine
DX: O20.0 Threatened abortion (principal); Z3A.17 17 weeks gestation of pregnancy
CPT/HCPCS: J7030

== ENCOUNTER 2017-10-13 18:43 | Emergency (ER) | payer MEDICAID ==
[~2017-10-13] VITALS: Ht 170.2 cm; Wt 69.5 kg
[~2017-10-13 18:43] MED LIST changes: +PROAIR HFA0.09 MG/AC IH; +PULMICORT180 MCG/Ac IH
[2017-10-13 18:46] VITALS: TEMP 98.6
[2017-10-13 20:10] LABS: BASO % 0.2 % (0.0-2.0); EOS # 0.2 (0.0-0.7); EOS % 1.8 % (0-4.0); GRAN # 5.5 (1.4-6.5); GRAN % 66.1 % (42.2-75.2); HEMOGLOBIN 10.9 g/dl (12.5-16.0); LYMPH # 2.3 (1.2-3.4); LYMPH % 27.7 % (20.0-51.0); MEAN CELL VOLUME 83 fl (80.0-100.0); MEAN CORPUSCULAR HEMOGLOBIN 28 pg (27.0-31.0); MEAN CORPUSCULAR HGB CONC 33 g/dl (33.0-37.0); MEAN PLATELET VOLUME 10.9 fl (7.4-10.4); MONO # 0.3 (0.1-0.6); MONO % 4.1 % (1.7-9.3); PLATELET COUNT 206 K/mm3 (130-400); RED BLOOD COUNT 3.92 M/mm3 (4.10-5.30); REDCELL DISTRIBUTION WIDTH-CV 14.1 % (11.5-14.5)
[2017-10-13 20:12] LABS: HEMATOCRIT 32.7 % (37.0-47.0)
[2017-10-13 20:18] LABS: COLLECTION METHOD CLEAN CATCH
[2017-10-13 20:23] LABS: ALBUMIN 3.7 gm/dL (3.5-5.0); BILIRUBIN,TOTAL 0.6 mg/dL (0.0-1.0); C-REACTIVE PROTEIN 0.7 mg/dL (0.0-0.9); CALCIUM 9.1 mg/dL (8.4-10.2); CREATININE, serum 0.53 mg/dL (0.52-1.25); POTASSIUM 3.5 mmol/L (3.4-5.0); TOTAL PROTEIN 7.3 gm/dL (6.4-8.2)
[2017-10-13 20:23] LABS: MUCOUS Present /lpf; PH 5 (5-8); SQUAMOUS EPITHELIAL 0-2 /hpf; URINE APPEARANCE Clear; URINE BACTERIA None Seen /hpf; URINE BILIRUBIN Negative (NEGATIVE); URINE BLOOD Negative (NEGATIVE); URINE COLOR Yellow; URINE GLUCOSE Negative (NEGATIVE); URINE KETONE Negative (NEGATIVE); URINE LEUKOCYTE ESTERASE Negative (NEGATIVE); URINE NITRATE Negative (NEGATIVE); URINE PROTEIN(semi-quant) 1+ (NEGATIVE); URINE RBC 0-2 /hpf
[2017-10-13 22:05] VITALS: BP 106/63; PULSE 68
== END 2017-10-13 22:05 | disposition home or self-care (01) ==
LOC: COL.ER 18:43
PROVIDERS: Emergency Medicine
DX: O46.92 Antepartum hemorrhage, unspecified, second trimester (principal); O99.512 Diseases of the respiratory system complicating pregnancy, second trimester; J45.909 Unspecified asthma, uncomplicated; Z90.89 Acquired absence of other organs; Z3A.18 18 weeks gestation of pregnancy
CPT/HCPCS: J7030

== ENCOUNTER 2017-11-05 18:00 | Emergency (ER) | payer MEDICAID ==
[~2017-11-05] VITALS: Ht 170.2 cm; Wt 68.2 kg
[2017-11-05 18:04] VITALS: BP 108/73; TEMP 97.9
[2017-11-05 19:38] LABS: COLLECTION METHOD CATHETER
[2017-11-05 19:49] LABS: PH 6 (5-8); SQUAMOUS EPITHELIAL None Seen /hpf; URINE APPEARANCE Clear; URINE BACTERIA None Seen /hpf; URINE BILIRUBIN Negative (NEGATIVE); URINE BLOOD Negative (NEGATIVE); URINE COLOR Yellow; URINE GLUCOSE Negative (NEGATIVE); URINE KETONE Negative (NEGATIVE); URINE LEUKOCYTE ESTERASE Negative (NEGATIVE); URINE NITRATE Negative (NEGATIVE); URINE PROTEIN(semi-quant) Negative (NEGATIVE); URINE RBC 0-2 /hpf; URINE UROBILINOGEN Negative (NEGATIVE)
[2017-11-05 20:43] LABS: BASO % 0.3 % (0.0-2.0); EOS # 0.2 (0.0-0.7); EOS % 2.6 % (0-4.0); GRAN # 4.4 (1.4-6.5); GRAN % 60.4 % (42.2-75.2); HEMOGLOBIN 10.3 g/dl (12.5-16.0); LYMPH # 2.2 (1.2-3.4); LYMPH % 30.7 % (20.0-51.0); MEAN CELL VOLUME 85 fl (80.0-100.0); MEAN CORPUSCULAR HEMOGLOBIN 28 pg (27.0-31.0); MEAN CORPUSCULAR HGB CONC 33 g/dl (33.0-37.0); MEAN PLATELET VOLUME 10.8 fl (7.4-10.4); MONO # 0.4 (0.1-0.6); MONO % 5.7 % (1.7-9.3); PLATELET COUNT 216 K/mm3 (130-400); RED BLOOD COUNT 3.63 M/mm3 (4.10-5.30); REDCELL DISTRIBUTION WIDTH-CV 14.6 % (11.5-14.5)
[2017-11-05 20:44] LABS: HEMATOCRIT 30.8 % (37.0-47.0)
[2017-11-05 20:49] LABS: ALBUMIN 3.7 gm/dL (3.5-5.0); BILIRUBIN,TOTAL 0.6 mg/dL (0.0-1.0); CALCIUM 8.7 mg/dL (8.4-10.2); CREATININE, serum 0.49 mg/dL (0.52-1.25); POTASSIUM 3.7 mmol/L (3.4-5.0); TOTAL PROTEIN 7.3 gm/dL (6.4-8.2)
[2017-11-05] MEDS ORDERED: FLAGYL500 MG PO (22:21)
[2017-11-05 22:33] VITALS: PULSE 94
== END 2017-11-05 22:35 | disposition home or self-care (01) ==
LOC: COL.ER 18:00
PROVIDERS: Physician Assistant
DX: O23.592 Infection of other part of genital tract in pregnancy, second trimester (principal); N76.0 Acute vaginitis; Z3A.21 21 weeks gestation of pregnancy; Z90.89 Acquired absence of other organs; Z79.52 Long term (current) use of systemic steroids

== ENCOUNTER → 2017-11-22 | Outpatient (CLI) | payer MEDICAID ==
[~2017-11-22] VITALS: Ht 170.2 cm; Wt 73.2 kg
[~2017-11-22] MED LIST changes: +BENADRYL25 M2 PO; +MAKENA250 MG/1 M IM; +TYLENOL 500MG500 MG PO
[2017-11-22 16:34] VITALS: BP 119/70; PULSE 85; TEMP 98.1
[2017-11-22 17:00] VITALS: BP 119/70; PULSE 85; TEMP 98.1
[2017-11-22 17:07] LABS: COLLECTION METHOD CATHETER
[2017-11-22 17:16] LABS: BASO % 0.1 % (0.0-2.0); EOS # 0.1 (0.0-0.7); EOS % 1.6 % (0-4.0); GRAN % 65.3 % (42.2-75.2); HEMOGLOBIN 10.5 g/dl (12.5-16.0); LYMPH % 26.7 % (20.0-51.0); MEAN CELL VOLUME 85 fl (80.0-100.0); MEAN CORPUSCULAR HEMOGLOBIN 29 pg (27.0-31.0); MEAN CORPUSCULAR HGB CONC 34 g/dl (33.0-37.0); MEAN PLATELET VOLUME 11.1 fl (7.4-10.4); MONO # 0.5 (0.1-0.6); PLATELET COUNT 227 K/mm3 (130-400); RED BLOOD COUNT 3.68 M/mm3 (4.10-5.30); REDCELL DISTRIBUTION WIDTH-CV 14.5 % (11.5-14.5)
[2017-11-22 17:18] LABS: PH 7 (5-8); SQUAMOUS EPITHELIAL 0-2 /hpf; URINE APPEARANCE Clear; URINE BACTERIA None Seen /hpf; URINE BILIRUBIN Negative (NEGATIVE); URINE BLOOD Negative (NEGATIVE); URINE COLOR Yellow; URINE GLUCOSE Negative (NEGATIVE); URINE KETONE Negative (NEGATIVE); URINE LEUKOCYTE ESTERASE Negative (NEGATIVE); URINE NITRATE Negative (NEGATIVE); URINE PROTEIN(semi-quant) Negative (NEGATIVE); URINE RBC 0-2 /hpf; URINE UROBILINOGEN Negative (NEGATIVE)
[2017-11-22 17:19] LABS: HEMATOCRIT 31.3 % (37.0-47.0)
[2017-11-22 17:22] LABS: ALBUMIN 3.5 gm/dL (3.5-5.0); BILIRUBIN,TOTAL 0.6 mg/dL (0.0-1.0); CALCIUM 8.8 mg/dL (8.4-10.2); CREATININE, serum 0.59 mg/dL (0.52-1.25); POTASSIUM 3.5 mmol/L (3.4-5.0); TOTAL PROTEIN 7.3 gm/dL (6.4-8.2)
[2017-11-22 17:26] LABS: TRICYCLIC ANTIDEPRESS URINE NEGATIVE
== END ==
LOC: COL.ER 16:14 → LDRO 16:14 → EDSTATUS 16:22
PROVIDERS: Obstetrics & Gynecology
DX: O99.89 Other specified diseases and conditions complicating pregnancy, childbirth and the puerperium (principal); R10.9 Unspecified abdominal pain; R42 Dizziness and giddiness; Z3A.23 23 weeks gestation of pregnancy
CPT/HCPCS: J7120

== ENCOUNTER 2017-12-08 19:10 | Outpatient (CLI) | payer MEDICAID ==
[~2017-12-08] VITALS: Ht 170.2 cm; Wt 72.7 kg
[2017-12-08 19:26] VITALS: BP 119/66; PULSE 107; TEMP 98.4
[2017-12-08 21:45] VITALS: BP 109/64; PULSE 74
== END 2017-12-08 21:56 | disposition home or self-care (01) ==
LOC: LDRO 19:10 → LDR 20:03 → LDRO 21:56
DX: O99.89 Other specified diseases and conditions complicating pregnancy, childbirth and the puerperium (principal); R10.84 Generalized abdominal pain; Z3A.25 25 weeks gestation of pregnancy
CPT/HCPCS: OP

== ENCOUNTER 2017-12-10 14:09 | Outpatient (CLI) | payer MEDICAID ==
[~2017-12-10] VITALS: Ht 170.2 cm; Wt 77.3 kg
[2017-12-10 14:30] VITALS: BP 112/70; PULSE 94
[2017-12-10 15:12] LABS: COLLECTION METHOD CLEAN CATCH
[2017-12-10 15:19] LABS: BASO % 0.1 % (0.0-2.0); EOS # 0.1 (0.0-0.7); GRAN % 71.9 % (42.2-75.2); LYMPH # 1.5 (1.2-3.4); LYMPH % 21.1 % (20.0-51.0); MEAN CELL VOLUME 87 fl (80.0-100.0); MEAN CORPUSCULAR HGB CONC 32 g/dl (33.0-37.0); MEAN PLATELET VOLUME 10.8 fl (7.4-10.4); MONO # 0.4 (0.1-0.6); MONO % 5.6 % (1.7-9.3); PLATELET COUNT 199 K/mm3 (130-400)
[2017-12-10 15:20] LABS: MUCOUS Present /lpf; PH 7 (5-8); URINE APPEARANCE Clear; URINE BACTERIA None Seen /hpf; URINE BILIRUBIN Negative (NEGATIVE); URINE BLOOD Negative (NEGATIVE); URINE COLOR Yellow; URINE GLUCOSE Negative (NEGATIVE); URINE KETONE Negative (NEGATIVE); URINE LEUKOCYTE ESTERASE Negative (NEGATIVE); URINE NITRATE Negative (NEGATIVE); URINE PROTEIN(semi-quant) Negative (NEGATIVE); URINE RBC None Seen /hpf; URINE UROBILINOGEN Negative (NEGATIVE)
[2017-12-10 15:20] LABS: HEMATOCRIT 28.6 % (37.0-47.0); HEMOGLOBIN 9.1 g/dl (12.5-16.0); MEAN CORPUSCULAR HEMOGLOBIN 28 pg (27.0-31.0)
[2017-12-10 15:35] LABS: ALBUMIN 3.1 gm/dL (3.5-5.0); BILIRUBIN,TOTAL 0.5 mg/dL (0.0-1.0); CALCIUM 8.5 mg/dL (8.4-10.2); CREATININE, serum 0.51 mg/dL (0.52-1.25); POTASSIUM 3.7 mmol/L (3.4-5.0); TOTAL PROTEIN 6.5 gm/dL (6.4-8.2)
[2017-12-10 15:40] VITALS: PULSE 78
[2017-12-10 15:50] VITALS: BP 120/78; PULSE 78
== END 2017-12-10 15:55 | disposition home or self-care (01) ==
LOC: LDRO 14:09
PROVIDERS: Obstetrics & Gynecology
DX: O26.892 Other specified pregnancy related conditions, second trimester (principal); Z3A.26 26 weeks gestation of pregnancy

== ENCOUNTER 2018-01-03 13:19 | Outpatient (CLI) | payer MEDICAID ==
[2018-01-03] VITALS (13 sets, daily range): BP systolic 111–138; BP diastolic 61–78; PULSE 95–133; TEMP 97.6–98.6
[~2018-01-03] VITALS: Ht 167.6 cm; Wt 76.8 kg
[2018-01-03 15:10] LABS: COLLECTION METHOD CLEAN CATCH
[2018-01-03 15:18] LABS: BASO % 0.2 % (0.0-2.0); EOS % 0.1 % (0-4.0); GRAN # 9.4 (1.4-6.5); GRAN % 73.6 % (42.2-75.2); LYMPH # 2.5 (1.2-3.4); LYMPH % 19.6 % (20.0-51.0); MEAN CELL VOLUME 86 fl (80.0-100.0); MEAN CORPUSCULAR HGB CONC 31 g/dl (33.0-37.0); MEAN PLATELET VOLUME 11.1 fl (7.4-10.4); MONO # 0.8 (0.1-0.6); MONO % 5.9 % (1.7-9.3); PLATELET COUNT 237 K/mm3 (130-400); RED BLOOD COUNT 3.64 M/mm3 (4.10-5.30); REDCELL DISTRIBUTION WIDTH-CV 13.2 % (11.5-14.5)
[2018-01-03 15:19] LABS: HEMATOCRIT 31.4 % (37.0-47.0); HEMOGLOBIN 9.7 g/dl (12.5-16.0); MEAN CORPUSCULAR HEMOGLOBIN 27 pg (27.0-31.0)
[2018-01-03 15:23] LABS: MUCOUS Present /lpf; PH 5 (5-8); SQUAMOUS EPITHELIAL 0-2 /hpf; URINE APPEARANCE Clear; URINE BACTERIA None Seen /hpf; URINE BILIRUBIN Negative (NEGATIVE); URINE BLOOD Negative (NEGATIVE); URINE CALCIUM OXALATE CRYSTAL Present /hpf; URINE COLOR Yellow; URINE GLUCOSE 1+ (NEGATIVE); URINE KETONE Negative (NEGATIVE); URINE LEUKOCYTE ESTERASE Trace (NEGATIVE); URINE NITRATE Negative (NEGATIVE); URINE PROTEIN(semi-quant) Negative (NEGATIVE); URINE RBC 0-2 /hpf; URINE UROBILINOGEN Negative (NEGATIVE)
[2018-01-03 15:41] LABS: ALBUMIN 3.7 gm/dL (3.5-5.0); BILIRUBIN,TOTAL 0.5 mg/dL (0.0-1.0); CALCIUM 9.1 mg/dL (8.4-10.2); CREATININE, serum 0.53 mg/dL (0.52-1.25); POTASSIUM 3.7 mmol/L (3.4-5.0); TOTAL PROTEIN 7.6 gm/dL (6.4-8.2)
[2018-01-03] MEDS ORDERED: FLINTSTONES W/I1 CTB PO (17:47)
[2018-01-06] MEDS ORDERED: LEXAPRO 5MG5 MG (06:59)
== END 2018-01-03 19:00 | disposition short-term general hospital (02) ==
LOC: LDRO 13:19
PROVIDERS: Obstetrics & Gynecology
DX: O62.9 Abnormality of forces of labor, unspecified (principal); Z3A.28 28 weeks gestation of pregnancy
CPT/HCPCS: J0702; J2540; J3105; J3475; J7120

== ENCOUNTER 2018-01-11 05:10 | Inpatient (IN) | payer MEDICAID ==
[~2018-01-11] VITALS: Ht 170.2 cm; Wt 76.4 kg
[2018-01-11] VITALS (19 sets, daily range): BP systolic 97–126; BP diastolic 51–85; PULSE 63–114; TEMP 97.6–98
[~2018-01-11 05:10] MED LIST changes: +FLINTSTONES W/I1 CTB PO; +LEXAPRO 5MG5 MG
[2018-01-11 05:53] LABS: BASO % 0.2 % (0.0-2.0); EOS # 0.1 (0.0-0.7); EOS % 0.7 % (0-4.0); GRAN # 6.3 (1.4-6.5); GRAN % 66.4 % (42.2-75.2); LYMPH # 2.4 (1.2-3.4); LYMPH % 25.2 % (20.0-51.0); MEAN CELL VOLUME 84 fl (80.0-100.0); MEAN CORPUSCULAR HGB CONC 32 g/dl (33.0-37.0); MEAN PLATELET VOLUME 10.5 fl (7.4-10.4); MONO # 0.7 (0.1-0.6); PLATELET COUNT 213 K/mm3 (130-400); RED BLOOD COUNT 3.47 M/mm3 (4.10-5.30); REDCELL DISTRIBUTION WIDTH-CV 13.3 % (11.5-14.5)
[2018-01-11 05:54] LABS: HEMATOCRIT 29.3 % (37.0-47.0); HEMOGLOBIN 9.4 g/dl (12.5-16.0); MEAN CORPUSCULAR HEMOGLOBIN 27 pg (27.0-31.0)
[2018-01-12 02:35] VITALS: BP 93/52; PULSE 70; TEMP 97.6
[2018-01-12 07:00] VITALS: BP 96/58; PULSE 74; TEMP 98.4
[2018-01-12] MEDS ORDERED: IBU800 M1 PO (11:01)
[2018-01-12] MEDS ORDERED: PERCOCET 325 MG1 TA2 PO (11:02)
== END 2018-01-12 13:00 | disposition home or self-care (01) | DRG 788 ==
LOC: LDRO 05:10 → LDR 05:43 → OB 08:00
PROVIDERS: Obstetrics & Gynecology
PROC: 10D00Z1 Extraction of Products of Conception, Low, Open Approach (ICD-10-PCS; principal; 2018-01-11)
DX: O60.14X0 Preterm labor third trimester with preterm delivery third trimester, not applicable or unspecified (principal); O32.1XX0 Maternal care for breech presentation, not applicable or unspecified; Z3A.30 30 weeks gestation of pregnancy; Z37.0 Single live birth; O36.8930 Maternal care for other specified fetal problems, third trimester, not applicable or unspecified; O34.03 Maternal care for unspecified congenital malformation of uterus, third trimester; Q51.3 Bicornate uterus; J45.909 Unspecified asthma, uncomplicated; O99.344 Other mental disorders complicating childbirth; F32.9 Major depressive disorder, single episode, unspecified
CPT/HCPCS: J0690; J1200; J1885; J2270; J2370; J2405; J2590; J7120

== ENCOUNTER 2018-02-13 11:20 | Emergency (ER) | payer MEDICAID ==
[~2018-02-13] VITALS: Ht 170.2 cm; Wt 72.5 kg
[~2018-02-13 11:20] MED LIST changes: +IBU800 M1 PO; +PERCOCET 325 MG1 TA2 PO
[2018-02-13 11:30] VITALS: TEMP 98.8
[2018-02-13 12:09] LABS: COLLECTION METHOD CLEAN CATCH
[2018-02-13 12:16] LABS: MUCOUS Present /lpf; PH 6 (5-8); SQUAMOUS EPITHELIAL None Seen /hpf; URINE APPEARANCE Clear; URINE BACTERIA None Seen /hpf; URINE BILIRUBIN Negative (NEGATIVE); URINE BLOOD 2+ (NEGATIVE); URINE COLOR Yellow; URINE GLUCOSE Negative (NEGATIVE); URINE KETONE Negative (NEGATIVE); URINE LEUKOCYTE ESTERASE Negative (NEGATIVE); URINE NITRATE Negative (NEGATIVE); URINE PROTEIN(semi-quant) Negative (NEGATIVE); URINE UROBILINOGEN Negative (NEGATIVE)
[2018-02-13 12:19] LABS: BASO % 0.2 % (0.0-2.0); EOS # 0.2 (0.0-0.7); EOS % 4.3 % (0-4.0); GRAN # 2.9 (1.4-6.5); GRAN % 52.4 % (42.2-75.2); HEMATOCRIT 39.3 % (37.0-47.0); HEMOGLOBIN 11.8 g/dl (12.5-16.0); LYMPH # 2.1 (1.2-3.4); LYMPH % 38.2 % (20.0-51.0); MEAN CELL VOLUME 83 fl (80.0-100.0); MEAN CORPUSCULAR HEMOGLOBIN 25 pg (27.0-31.0); MEAN CORPUSCULAR HGB CONC 30 g/dl (33.0-37.0); MEAN PLATELET VOLUME 10.1 fl (7.4-10.4); MONO # 0.3 (0.1-0.6); MONO % 4.7 % (1.7-9.3); PLATELET COUNT 251 K/mm3 (130-400); RED BLOOD COUNT 4.75 M/mm3 (4.10-5.30); REDCELL DISTRIBUTION WIDTH-CV 13.9 % (11.5-14.5)
[2018-02-13 12:21] LABS: TRICYCLIC ANTIDEPRESS URINE NEGATIVE
[2018-02-13 12:33] LABS: ALANINE AMINOTRANSFERASE 28 U/L (9-52); ALBUMIN 4.2 gm/dL (3.5-5.0); ALKALINE PHOSPHATASE 80 U/L (50-136); ANION GAP 6 mmol/L (7-16); AST,SGOT 20 U/L (15-37); BILIRUBIN,TOTAL 0.8 mg/dL (0.0-1.0); BLOOD UREA NITROGEN 7 mg/dL (7-17); CALCIUM 9.2 mg/dL (8.4-10.2); CARBON DIOXIDE 27 mmol/L (22-30); CHLORIDE 109 mmol/L (98-107); CREATININE, serum 0.81 mg/dL (0.52-1.25); GLUCOSE 89 mg/dL (74-106); POTASSIUM 4.3 mmol/L (3.4-5.0); SODIUM 141 mmol/L (137-145); TOTAL PROTEIN 8.1 gm/dL (6.4-8.2)
[2018-02-13 12:34] LABS: ACETAMINOPHEN < 10 ug/mL (10-30); ALCOHOL(ethanol),MEDICAL < 10 mg/dL; SALICYLATE < 1.0 mg/dL
[2018-02-13 15:30] VITALS: BP 117/70; PULSE 72
== END 2018-02-13 15:37 | disposition home or self-care (01) ==
LOC: COL.ER 11:20
PROVIDERS: Physician Assistant
DX: R45.851 Suicidal ideations (principal); F32.9 Major depressive disorder, single episode, unspecified; Z98.890 Other specified postprocedural states

== ENCOUNTER 2018-03-19 18:08 | Emergency (ER) | payer MEDICAID ==
[~2018-03-19] VITALS: Ht 162.6 cm; Wt 68.2 kg
[2018-03-19 18:11] VITALS: TEMP 98.1
[2018-03-19 18:40] LABS: BASO % 0.2 % (0.0-2.0); EOS # 0.2 (0.0-0.7); EOS % 3.3 % (0-4.0); GRAN # 2.3 (1.4-6.5); GRAN % 47.7 % (42.2-75.2); HEMATOCRIT 31.5 % (37.0-47.0); HEMOGLOBIN 9.7 g/dl (12.5-16.0); LYMPH # 2.1 (1.2-3.4); LYMPH % 42.6 % (20.0-51.0); MEAN CELL VOLUME 79 fl (80.0-100.0); MEAN CORPUSCULAR HEMOGLOBIN 24 pg (27.0-31.0); MEAN CORPUSCULAR HGB CONC 31 g/dl (33.0-37.0); MEAN PLATELET VOLUME 10.2 fl (7.4-10.4); MONO # 0.3 (0.1-0.6); PLATELET COUNT 207 K/mm3 (130-400); RED BLOOD COUNT 3.99 M/mm3 (4.10-5.30); REDCELL DISTRIBUTION WIDTH-CV 14.6 % (11.5-14.5)
[2018-03-19 18:52] LABS: ALBUMIN 3.7 gm/dL (3.5-5.0); BILIRUBIN,TOTAL 0.5 mg/dL (0.0-1.0); CALCIUM 8.8 mg/dL (8.4-10.2); CREATININE, serum 0.68 mg/dL (0.52-1.25); TOTAL PROTEIN 6.8 gm/dL (6.4-8.2)
[2018-03-19 21:24] VITALS: BP 102/56; PULSE 64
== END 2018-03-19 21:30 | disposition home or self-care (01) ==
LOC: COL.ER 18:08
PROVIDERS: Family Medicine
DX: S06.0X9A Concussion with loss of consciousness of unspecified duration, initial encounter (principal); S00.93XA Contusion of unspecified part of head, initial encounter; S10.93XA Contusion of unspecified part of neck, initial encounter; S30.1XXA Contusion of abdominal wall, initial encounter; S40.012A Contusion of left shoulder, initial encounter; V80.919A Animal-rider injured in unspecified transport accident, initial encounter; Y93.52 Activity, horseback riding
CPT/HCPCS: J1885; J2405; J3010; J7030; Q9967

== ENCOUNTER 2018-05-19 21:55 | Emergency (ER) | payer MEDICAID | END 2018-05-20 02:38 | disposition home or self-care (01) | LOC: COL.ER 21:55 | DX: N83.201 Unspecified ovarian cyst, right side (principal) ==

== ENCOUNTER 2018-06-08 20:20 | Emergency (ER) | payer MEDICAID ==
[~2018-06-08] VITALS: Ht 170.2 cm; Wt 81.4 kg
[~2018-06-08 20:20] MED LIST changes: +DEPRESSION MED; +PHENERGAN 25 TA25 MG PO; +birth control
[2018-06-08 20:23] VITALS: BP 121/75; PULSE 81; TEMP 97.7
[2018-06-08 20:50] LABS: COLLECTION METHOD CLEAN CATCH
[2018-06-08 20:56] LABS: MUCOUS Present /lpf; PH 5 (5-8); SQUAMOUS EPITHELIAL 0-2 /hpf; URINE APPEARANCE Clear; URINE BACTERIA None Seen /hpf; URINE BILIRUBIN Negative (NEGATIVE); URINE BLOOD Negative (NEGATIVE); URINE COLOR Colorless; URINE GLUCOSE Negative (NEGATIVE); URINE KETONE Negative (NEGATIVE); URINE LEUKOCYTE ESTERASE Negative (NEGATIVE); URINE NITRATE Negative (NEGATIVE); URINE PROTEIN(semi-quant) Negative (NEGATIVE); URINE RBC 0-2 /hpf; URINE UROBILINOGEN Negative (NEGATIVE)
[2018-06-08 21:09] LABS: BASO % 0.5 % (0.0-2.0); EOS # 0.2 (0.0-0.7); EOS % 2.9 % (0-4.0); GRAN % 48.2 % (42.2-75.2); HEMOGLOBIN 10.7 g/dl (12.5-16.0); LYMPH # 2.6 (1.2-3.4); LYMPH % 41.9 % (20.0-51.0); MEAN CELL VOLUME 79 fl (80.0-100.0); MEAN CORPUSCULAR HEMOGLOBIN 24 pg (27.0-31.0); MEAN CORPUSCULAR HGB CONC 31 g/dl (33.0-37.0); MEAN PLATELET VOLUME 10.5 fl (7.4-10.4); MONO # 0.4 (0.1-0.6); MONO % 6.2 % (1.7-9.3); PLATELET COUNT 245 K/mm3 (130-400); REDCELL DISTRIBUTION WIDTH-CV 15.1 % (11.5-14.5)
[2018-06-08 21:11] LABS: HEMATOCRIT 34.8 % (37.0-47.0)
[2018-06-08 21:21] LABS: ALANINE AMINOTRANSFERASE 36 U/L (9-52); ALBUMIN 4.2 gm/dL (3.5-5.0); ALKALINE PHOSPHATASE 80 U/L (50-136); ANION GAP 8 mmol/L (7-16); AST,SGOT 32 U/L (15-37); BILIRUBIN,TOTAL 0.6 mg/dL (0.0-1.0); BLOOD UREA NITROGEN 11 mg/dL (7-17); CARBON DIOXIDE 25 mmol/L (22-30); CHLORIDE 105 mmol/L (98-107); CREATININE, serum 0.78 mg/dL (0.52-1.25); GLUCOSE 89 mg/dL (74-106); SODIUM 139 mmol/L (137-145); TOTAL PROTEIN 7.7 gm/dL (6.4-8.2)
[2018-06-08 21:33] LABS: C-REACTIVE PROTEIN < 0.5 mg/dL (0.0-0.9)
== END 2018-06-08 22:55 | disposition home or self-care (01) ==
LOC: COL.ER 20:20
PROVIDERS: Nurse Practitioner
DX: R10.31 Right lower quadrant pain (principal); F32.9 Major depressive disorder, single episode, unspecified

== ENCOUNTER 2018-06-16 18:25 | Observation (INO) | payer MEDICAID ==
[~2018-06-16] VITALS: Ht 170.2 cm; Wt 79.9 kg
[2018-06-16 19:44] LABS: BASO % 0.4 % (0.0-2.0); EOS # 0.2 (0.0-0.7); GRAN # 2.6 (1.4-6.5); GRAN % 45.6 % (42.2-75.2); LYMPH # 2.5 (1.2-3.4); LYMPH % 43.9 % (20.0-51.0); MEAN CELL VOLUME 80 fl (80.0-100.0); MEAN CORPUSCULAR HEMOGLOBIN 24 pg (27.0-31.0); MEAN CORPUSCULAR HGB CONC 30 g/dl (33.0-37.0); MEAN PLATELET VOLUME 10.7 fl (7.4-10.4); MONO # 0.4 (0.1-0.6); MONO % 6.9 % (1.7-9.3); PLATELET COUNT 237 K/mm3 (130-400); RED BLOOD COUNT 4.54 M/mm3 (4.10-5.30); REDCELL DISTRIBUTION WIDTH-CV 15.7 % (11.5-14.5)
[2018-06-16 19:46] LABS: HEMATOCRIT 36.4 % (37.0-47.0)
[2018-06-16 19:55] LABS: ALANINE AMINOTRANSFERASE 37 U/L (9-52); ALBUMIN 4.1 gm/dL (3.5-5.0); ALKALINE PHOSPHATASE 69 U/L (50-136); ANION GAP 6 mmol/L (7-16); AST,SGOT 41 U/L (15-37); BILIRUBIN,TOTAL 0.9 mg/dL (0.0-1.0); BLOOD UREA NITROGEN 8 mg/dL (7-17); CALCIUM 8.8 mg/dL (8.4-10.2); CARBON DIOXIDE 27 mmol/L (22-30); CHLORIDE 108 mmol/L (98-107); CREATININE, serum 0.71 mg/dL (0.52-1.25); GLUCOSE 87 mg/dL (74-106); POTASSIUM 4.2 mmol/L (3.4-5.0); SODIUM 140 mmol/L (137-145); TOTAL PROTEIN 7.7 gm/dL (6.4-8.2)
[2018-06-16 20:02] LABS: C-REACTIVE PROTEIN < 0.5 mg/dL (0.0-0.9)
[2018-06-16 22:25] VITALS: BP 111/69; PULSE 68; TEMP 97.7
--- NOTE | 2018-06-16 22:25 | NUR ---
report received from YVROSE Rose from ED.
--- NOTE | 2018-06-16 22:26 | NUR ---
pt transported to room 318 via wheelchair.
[2018-06-16] MEDS ORDERED: DESYREL 50MG50 MG PO (22:49)
[2018-06-16] MEDS ORDERED: BRINTELLIX10 PO (22:50)
--- NOTE | 2018-06-16 23:00 | NUR ---
Assessmnet completed.patient awake sitting up at edge of bed eating a sandwich.patient able to swallow without any complaints.A/ox3.denies pain.breathing even and unlabored.LSCTA.pt c/o right sided weakness and numbness.right sided arm and lower extremity noted to have trace of movement.slurred speech noted.neuros completed and documented.patient denies further needs.INT to LAC.bed alarm on.MRI,neuro cons and echo ordered.patient updated on tests to be done in morning per orders.VSS.will continue to monitor.call light in reach
--- NOTE | 2018-06-17 03:31 | NUR ---
pt laying in bed sleeping.Vitals signs remain stable.Neuros unchanged.pt denies needs
--- NOTE | 2018-06-17 04:43 | NUR ---
This Nurse help pt with toileting to bedside commode.pt was able to assist.
[2018-06-17 05:24] VITALS: BP 108/51; PULSE 60; TEMP 97.8
[2018-06-17 08:35] LABS: BASO % 0.4 % (0.0-2.0); EOS # 0.2 (0.0-0.7); EOS % 3.4 % (0-4.0); GRAN % 39.2 % (42.2-75.2); HEMOGLOBIN 10.2 g/dl (12.5-16.0); LYMPH # 2.6 (1.2-3.4); LYMPH % 50.5 % (20.0-51.0); MEAN CELL VOLUME 79 fl (80.0-100.0); MEAN CORPUSCULAR HEMOGLOBIN 24 pg (27.0-31.0); MEAN CORPUSCULAR HGB CONC 30 g/dl (33.0-37.0); MEAN PLATELET VOLUME 10.3 fl (7.4-10.4); MONO # 0.3 (0.1-0.6); MONO % 6.3 % (1.7-9.3); PLATELET COUNT 202 K/mm3 (130-400); RED BLOOD COUNT 4.23 M/mm3 (4.10-5.30); REDCELL DISTRIBUTION WIDTH-CV 15.7 % (11.5-14.5)
[2018-06-17 08:37] LABS: HEMATOCRIT 33.6 % (37.0-47.0)
[2018-06-17 08:45] LABS: CALCIUM 8.5 mg/dL (8.4-10.2); CREATININE, serum 0.71 mg/dL (0.52-1.25); POTASSIUM 3.9 mmol/L (3.4-5.0)
--- NOTE | 2018-06-17 08:48 | NUR ---
PT IN BED WITH HOB ELEVATED. PT'S SPEECH IS SLURRED, BUT STILL UNDERSTANDABLE AND SPEECH LOGICAL. PT'S HAS RIGHT SIDED WEAKNESS. PT ADVISED THAT SHE CANNOT DO AN MRI WITHOUT ATIVAN BECAUSE SHE HAS ANXIETY. PT C/O HEADACHE RATED AT 7/10. CALLED DR. MCCLELLAN AND HE ADVISED HE WILL PUT IN ORDERS FOR ATIVAN PO. CALLED PROSPER MILLER AND SHE ADVISED THAT SHE IS ABLE TO SWALLOW PILLS AND HAVE A REGULAR DIET. CALL LIGHT WITHIN REACH.
[2018-06-17 11:32] VITALS: BP 99/71; PULSE 102; TEMP 97.9
--- NOTE | 2018-06-17 13:31 | NUR ---
ASSISTED PT TO BEDSIDE COMMODE, DISPLAYS WEAKNESS ON RIGHT SIDE. PT WAS ASSISTED BACK INTO BED X2. PT RAISED RIGHT ARM OFF OF BED, WHEN ASKED PT IF SHE COULD MOVE HER RIGHT ARM SHE STATED, "NO, ONLY IF I MOVE IT WITH MY LEFT HAND." PT DENIES PAIN OR DISCOMFORT AT THIS TIME. NO FURTHER NEEDS. CALL LIGHT WITHIN REACH.
[2018-06-17 15:47] VITALS: BP 114/71; PULSE 64; TEMP 101.2
--- NOTE | 2018-06-17 15:49 | NUR ---
SW attended clinical rounds to discuss discharge planning. Patient's and children were also present. Patient lives independently at home with her and children. Patient's PCP is Dr Hoyos and she obtains prescriptions from [facility]. Patient does not use any home health services or DME at home. Patient sees Leonid at [facility] for depression and anxiety. She is also on medications for depression and anxiety. Patient is tearful because she does not like being away from her kids and would like to go home. Doctor is understanding but would also like patient to be seen by a neurologist and reports that patient may be able to discharge tomorrow. DAVE contacted Leonid from [facility] about seeing if she could be seen while she is in the hospital. Leonid questioned if patient is suicidal or having suicidal thoughts. DAVE reported she is not but doctor wondered if someone from [facility] could meet with patient. Leonid reports she cannot meet with patient but she will pass the message onto the crisis staff. She also reports they will likley not be able to meet with patient while she is in the hospital but they suggest making a follow up appointment after she is discharged. Patient also reported her insurance will be running out at the end of the month. SW reported she can contact the financial counselor and have them meet with her about her insurance. DAVE does not anticipate any discharge needs but will continue to follow.
--- NOTE | 2018-06-17 17:06 | NUR ---
PT IN ROOM WITH AND CHILDREN. PT ADVISED THAT SHE IS DOING A LOT BETTER AND JUST WANTS TO GO HOME. PT ADVISED THAT SHE IS ABLE TO WALK WITHOUT A WALKER OR CANE, AND ABLE TO FULLY USE HER RIGHT ARM AGAIN. ADVISED DR. SHELTON OF PT'S REQUEST. DR. SHELTON WENT INTO ROOM AND SPOKE WITH PT ABOUT HER WEAKNESS. PT ADVISED DR. SHELTON THAT SHE GOT BLOOD FLOW BACK TO HER RIGHT LEG WHEN SHE GOT UP WITH PHYSICAL THERAPY. DR. SHELTON GAVE ORDERS TO DISCHARGE.
--- NOTE | 2018-06-17 17:20 | NUR ---
REMOVED IV FROM LEFT AC, CATHETER INTACT, PRESSURE APPLIED TILL BLEEDING STOPPED, AND PROTECTIVE DRSG APPLIED TO SITE. ALSO, REMOVED TELEMETRY. PT WAS GIVEN DISCHARGE INSTRUCTIONS AND PT VERBALIZED UNDERSTANDING. PT TOOK ALL PERSONAL BELONGINGS WITH HER. PT WAS TAKEN DOWN VIA WHEELCHAIR TO PRIVATE VEHICLE AND LEFT WITH AND CHILDREN.
== END 2018-06-17 17:20 | disposition home or self-care (01) ==
LOC: COL.ER 18:25 → MEDICAL 21:13
PROVIDERS: Emergency Medicine; ADMIT Internal Medicine
DX: R53.1 Weakness (principal); R47.81 Slurred speech; R07.9 Chest pain, unspecified; F32.9 Major depressive disorder, single episode, unspecified; F41.9 Anxiety disorder, unspecified; J45.909 Unspecified asthma, uncomplicated; Z83.3 Family history of diabetes mellitus; Z91.040 Latex allergy status
CPT/HCPCS: G0378; J1644

== ENCOUNTER 2018-07-09 22:19 | Emergency (ER) | payer MEDICAID ==
[~2018-07-09] VITALS: Ht 170.2 cm; Wt 81.8 kg
[~2018-07-09 22:19] MED LIST changes: +BRINTELLIX10 PO; +DESYREL 50MG50 MG PO
[2018-07-09 22:20] VITALS: TEMP 97
[2018-07-09 22:45] LABS: COLLECTION METHOD CLEAN CATCH
[2018-07-09 22:48] LABS: BASO % 0.3 % (0.0-2.0); EOS # 0.1 (0.0-0.7); EOS % 0.9 % (0-4.0); GRAN # 7.6 (1.4-6.5); GRAN % 83.4 % (42.2-75.2); HEMOGLOBIN 11.1 g/dl (12.5-16.0); LYMPH # 1.2 (1.2-3.4); LYMPH % 13.1 % (20.0-51.0); MEAN CELL VOLUME 81 fl (80.0-100.0); MEAN CORPUSCULAR HEMOGLOBIN 25 pg (27.0-31.0); MEAN CORPUSCULAR HGB CONC 31 g/dl (33.0-37.0); MEAN PLATELET VOLUME 9.9 fl (7.4-10.4); MONO # 0.2 (0.1-0.6); PLATELET COUNT 218 K/mm3 (130-400); RED BLOOD COUNT 4.46 M/mm3 (4.10-5.30); REDCELL DISTRIBUTION WIDTH-CV 15.7 % (11.5-14.5)
[2018-07-09 22:50] LABS: HEMATOCRIT 36.1 % (37.0-47.0)
[2018-07-09 22:53] LABS: MUCOUS Present /lpf; PH 7 (5-8); URINE APPEARANCE Clear; URINE BACTERIA None Seen /hpf; URINE BILIRUBIN Negative (NEGATIVE); URINE BLOOD Negative (NEGATIVE); URINE COLOR Yellow; URINE GLUCOSE Negative (NEGATIVE); URINE KETONE Negative (NEGATIVE); URINE LEUKOCYTE ESTERASE Negative (NEGATIVE); URINE NITRATE Negative (NEGATIVE); URINE PROTEIN(semi-quant) 1+ (NEGATIVE); URINE RBC 0-2 /hpf; URINE UROBILINOGEN Negative (NEGATIVE)
[2018-07-09 23:42] LABS: ALBUMIN 4.1 gm/dL (3.5-5.0); BILIRUBIN,TOTAL 0.7 mg/dL (0.0-1.0); CALCIUM 8.7 mg/dL (8.4-10.2); CREATININE, serum 0.85 (0.52-1.25); POTASSIUM 3.7 mmol/L (3.4-5.0); TOTAL PROTEIN 7.6 gm/dL (6.4-8.2)
[2018-07-10 03:38] VITALS: BP 105/57; PULSE 112
== END 2018-07-10 03:38 | disposition home or self-care (01) ==
LOC: COL.ER 22:19
PROVIDERS: Family Medicine; Nurse Practitioner
DX: R55 Syncope and collapse (principal); F32.9 Major depressive disorder, single episode, unspecified; F41.9 Anxiety disorder, unspecified; J45.909 Unspecified asthma, uncomplicated; Z91.040 Latex allergy status; Z79.51 Long term (current) use of inhaled steroids; Z87.81 Personal history of (healed) traumatic fracture
CPT/HCPCS: J1885; J7030; Q9967

== ENCOUNTER 2018-09-15 23:11 | Emergency (ER) | payer SELFPAY ==
[~2018-09-15] VITALS: Ht 170.2 cm; Wt 83.2 kg
[2018-09-15 23:31] LABS: BASO % 0.5 % (0.0-2.0); EOS # 0.2 (0.0-0.7); EOS % 2.6 % (0-4.0); GRAN # 2.4 (1.4-6.5); GRAN % 39.6 % (42.2-75.2); HEMATOCRIT 37.9 % (37.0-47.0); HEMOGLOBIN 11.9 g/dl (12.5-16.0); LYMPH % 48.8 % (20.0-51.0); MEAN CELL VOLUME 82 fl (80.0-100.0); MEAN CORPUSCULAR HEMOGLOBIN 26 pg (27.0-31.0); MEAN CORPUSCULAR HGB CONC 31 g/dl (33.0-37.0); MEAN PLATELET VOLUME 10.9 fl (7.4-10.4); MONO # 0.5 (0.1-0.6); MONO % 8.3 % (1.7-9.3); PLATELET COUNT 193 K/mm3 (130-400); RED BLOOD COUNT 4.61 M/mm3 (4.10-5.30); REDCELL DISTRIBUTION WIDTH-CV 15.5 % (11.5-14.5)
[2018-09-15 23:45] LABS: ALANINE AMINOTRANSFERASE 15 U/L (9-52); ALBUMIN 4.3 gm/dL (3.5-5.0); ALKALINE PHOSPHATASE 74 U/L (50-136); ANION GAP 10 mmol/L (7-16); AST,SGOT 30 U/L (15-37); BILIRUBIN,TOTAL 0.5 mg/dL (0.0-1.0); BLOOD UREA NITROGEN 10 mg/dL (7-17); CALCIUM 9.4 mg/dL (8.4-10.2); CARBON DIOXIDE 23 mmol/L (22-30); CHLORIDE 107 mmol/L (98-107); CREATININE, serum 0.81 (0.52-1.25); GLUCOSE 79 mg/dL (74-106); LIPASE 37 U/L (23-300); SODIUM 140 mmol/L (137-145); TOTAL PROTEIN 8.2 gm/dL (6.4-8.2)
[2018-09-15 23:46] LABS: C-REACTIVE PROTEIN < 0.5 mg/dL (0.0-0.9)
[2018-09-16 00:56] LABS: COLLECTION METHOD CLEAN CATCH
[2018-09-16 01:09] VITALS: TEMP 97
[2018-09-16 01:11] LABS: PH 7 (5-8); SQUAMOUS EPITHELIAL 0-2 /hpf; URINE APPEARANCE Clear; URINE BACTERIA None Seen /hpf; URINE BILIRUBIN Negative (NEGATIVE); URINE BLOOD Negative (NEGATIVE); URINE COLOR Straw; URINE GLUCOSE Negative (NEGATIVE); URINE KETONE Negative (NEGATIVE); URINE LEUKOCYTE ESTERASE Trace (NEGATIVE); URINE NITRATE Negative (NEGATIVE); URINE PROTEIN(semi-quant) Negative (NEGATIVE); URINE RBC 0-2 /hpf; URINE UROBILINOGEN Negative (NEGATIVE)
[2018-09-16] MEDS ORDERED: ZOFRAN 4MG T4 MG/TAB PO (02:31)
[2018-09-16 02:40] VITALS: BP 110/69; PULSE 66
== END 2018-09-16 02:40 | disposition home or self-care (01) ==
LOC: COL.ER 23:11
PROVIDERS: Emergency Medicine
DX: R10.11 Right upper quadrant pain (principal); R07.81 Pleurodynia; R11.0 Nausea; F32.9 Major depressive disorder, single episode, unspecified; Z87.42 Personal history of other diseases of the female genital tract; Z79.51 Long term (current) use of inhaled steroids
CPT/HCPCS: J1630; J1885; J2405; J3010

== ENCOUNTER 2018-10-04 14:41 | Emergency (ER) | payer SELFPAY ==
[~2018-10-04] VITALS: Ht 170.2 cm; Wt 81.7 kg
[2018-10-04 15:05] VITALS: TEMP 98
[2018-10-04 16:11] LABS: COLLECTION METHOD CLEAN CATCH
[2018-10-04 16:21] LABS: BASO % 0.3 % (0.0-2.0); EOS # 0.2 (0.0-0.7); EOS % 2.6 % (0-4.0); GRAN % 49.5 % (42.2-75.2); HEMOGLOBIN 12.7 g/dl (12.5-16.0); LYMPH # 2.5 (1.2-3.4); LYMPH % 41.2 % (20.0-51.0); MEAN CELL VOLUME 84 fl (80.0-100.0); MEAN CORPUSCULAR HEMOGLOBIN 26 pg (27.0-31.0); MEAN CORPUSCULAR HGB CONC 31 g/dl (33.0-37.0); MEAN PLATELET VOLUME 10.7 fl (7.4-10.4); MONO # 0.4 (0.1-0.6); MONO % 6.1 % (1.7-9.3); PLATELET COUNT 234 K/mm3 (130-400); RED BLOOD COUNT 4.91 M/mm3 (4.10-5.30); REDCELL DISTRIBUTION WIDTH-CV 15.2 % (11.5-14.5)
[2018-10-04 16:24] LABS: MUCOUS Present /lpf; PH 5 (5-8); URINE APPEARANCE Hazy; URINE BACTERIA None Seen /hpf; URINE BILIRUBIN Negative (NEGATIVE); URINE BLOOD Negative (NEGATIVE); URINE COLOR Yellow; URINE GLUCOSE Negative (NEGATIVE); URINE KETONE Negative (NEGATIVE); URINE LEUKOCYTE ESTERASE Negative (NEGATIVE); URINE NITRATE Negative (NEGATIVE); URINE PROTEIN(semi-quant) Negative (NEGATIVE); URINE RBC 0-2 /hpf; URINE UROBILINOGEN Negative (NEGATIVE)
[2018-10-04 16:36] LABS: ALANINE AMINOTRANSFERASE < 6 U/L (9-52); ALBUMIN 4.6 gm/dL (3.5-5.0); ALKALINE PHOSPHATASE 81 U/L (50-136); ANION GAP 12 mmol/L (7-16); AST,SGOT 30 U/L (15-37); BILIRUBIN,TOTAL 0.7 mg/dL (0.0-1.0); BLOOD UREA NITROGEN 9 mg/dL (7-17); CALCIUM 9.6 mg/dL (8.4-10.2); CARBON DIOXIDE 26 mmol/L (22-30); CHLORIDE 105 mmol/L (98-107); CREATININE, serum 0.72 (0.52-1.25); GLUCOSE 82 mg/dL (74-106); POTASSIUM 3.9 mmol/L (3.4-5.0); SODIUM 143 mmol/L (137-145); TOTAL PROTEIN 8.8 gm/dL (6.4-8.2)
[2018-10-04 16:39] LABS: C-REACTIVE PROTEIN < 0.5 mg/dL (0.0-0.9)
[2018-10-04] MEDS ORDERED: CEFTIN500 MG PO (16:56)
[2018-10-04 17:16] VITALS: BP 108/70; PULSE 56
== END 2018-10-04 17:17 | disposition home or self-care (01) ==
LOC: COL.ER 14:41
PROVIDERS: Physician Assistant
DX: N39.0 Urinary tract infection, site not specified (principal); Z98.890 Other specified postprocedural states
CPT/HCPCS: J1885; J2270; J2405; J7030

== ENCOUNTER 2018-10-06 13:26 | Emergency (ER) | payer SELFPAY ==
[~2018-10-06] VITALS: Ht 170.2 cm; Wt 84.3 kg
[~2018-10-06 13:26] MED LIST changes: +CEFTIN500 MG PO
[2018-10-06 13:55] VITALS: TEMP 97.6
[2018-10-06 14:44] LABS: COLLECTION METHOD CLEAN CATCH
[2018-10-06 15:08] LABS: PH 6 (5-8); URINE APPEARANCE Hazy; URINE BACTERIA Rare /hpf; URINE BILIRUBIN Negative (NEGATIVE); URINE BLOOD Negative (NEGATIVE); URINE COLOR Yellow; URINE GLUCOSE Negative (NEGATIVE); URINE KETONE Negative (NEGATIVE); URINE LEUKOCYTE ESTERASE 1+ (NEGATIVE); URINE NITRATE Positive (NEGATIVE); URINE PROTEIN(semi-quant) Negative (NEGATIVE); URINE UROBILINOGEN Negative (NEGATIVE)
[2018-10-06 15:09] LABS: TRICYCLIC ANTIDEPRESS URINE NEGATIVE
[2018-10-06 15:21] LABS: BASO % 0.2 % (0.0-2.0); EOS # 0.1 (0.0-0.7); EOS % 2.1 % (0-4.0); GRAN # 2.7 (1.4-6.5); GRAN % 49.5 % (42.2-75.2); HEMATOCRIT 37.2 % (37.0-47.0); HEMOGLOBIN 11.6 g/dl (12.5-16.0); LYMPH # 2.3 (1.2-3.4); LYMPH % 42.2 % (20.0-51.0); MEAN CELL VOLUME 83 fl (80.0-100.0); MEAN CORPUSCULAR HEMOGLOBIN 26 pg (27.0-31.0); MEAN CORPUSCULAR HGB CONC 31 g/dl (33.0-37.0); MONO # 0.3 (0.1-0.6); MONO % 5.8 % (1.7-9.3); PLATELET COUNT 212 K/mm3 (130-400); RED BLOOD COUNT 4.46 M/mm3 (4.10-5.30)
[2018-10-06 15:29] LABS: ACETAMINOPHEN < 10 ug/mL (10-30); ALANINE AMINOTRANSFERASE 13 U/L (9-52); ALBUMIN 3.9 gm/dL (3.5-5.0); ALCOHOL(ethanol),MEDICAL < 10 mg/dL; ALKALINE PHOSPHATASE 66 U/L (50-136); ANION GAP 7 mmol/L (7-16); AST,SGOT 26 U/L (15-37); BILIRUBIN,TOTAL 0.5 mg/dL (0.0-1.0); BLOOD UREA NITROGEN 9 mg/dL (7-17); CALCIUM 9.1 mg/dL (8.4-10.2); CARBON DIOXIDE 28 mmol/L (22-30); CHLORIDE 107 mmol/L (98-107); CREATININE, serum 0.79 (0.52-1.25); GLUCOSE 87 mg/dL (74-106); POTASSIUM 4.2 mmol/L (3.4-5.0); SALICYLATE < 1.0 mg/dL; SODIUM 142 mmol/L (137-145); TOTAL PROTEIN 7.5 gm/dL (6.4-8.2)
[2018-10-06 15:56] LABS: TSH w REFLEX 0.739 uIU/mL (0.465-4.680)
[2018-10-07 08:27] VITALS: BP 119/62; PULSE 89
== END 2018-10-07 08:38 ==
LOC: COL.ER 13:26
PROVIDERS: Emergency Medicine
DX: N39.0 Urinary tract infection, site not specified (principal); R45.851 Suicidal ideations; F32.9 Major depressive disorder, single episode, unspecified; F41.9 Anxiety disorder, unspecified; Z98.890 Other specified postprocedural states

== ENCOUNTER 2019-01-18 22:51 | Emergency (ER) | payer SELFPAY ==
[~2019-01-18] VITALS: Ht 170.2 cm; Wt 82.7 kg
[2019-01-18 23:15] VITALS: BP 116/70; PULSE 71; TEMP 97.9
== END 2019-01-19 02:04 | disposition left against medical advice (07) ==
LOC: COL.ER 22:51
DX: M25.511 Pain in right shoulder (principal)

== ENCOUNTER 2019-01-27 00:20 | Emergency (ER) | payer SELFPAY ==
[~2019-01-27] VITALS: Ht 170.2 cm; Wt 85.1 kg
[2019-01-27 00:25] VITALS: TEMP 98.3
[2019-01-27 00:42] LABS: COLLECTION METHOD CLEAN CATCH
[2019-01-27 00:45] LABS: BASO % 0.3 % (0.0-2.0); EOS # 0.1 (0.0-0.7); EOS % 1.3 % (0-4.0); GRAN # 6.5 (1.4-6.5); GRAN % 64.4 % (42.2-75.2); HEMATOCRIT 40.7 % (37.0-47.0); LYMPH # 2.8 (1.2-3.4); LYMPH % 27.5 % (20.0-51.0); MEAN CELL VOLUME 87 fl (80.0-100.0); MEAN CORPUSCULAR HEMOGLOBIN 28 pg (27.0-31.0); MEAN CORPUSCULAR HGB CONC 32 g/dl (33.0-37.0); MEAN PLATELET VOLUME 10.3 fl (7.4-10.4); MONO # 0.6 (0.1-0.6); MONO % 6.1 % (1.7-9.3); PLATELET COUNT 223 K/mm3 (130-400); REDCELL DISTRIBUTION WIDTH-CV 13.7 % (11.5-14.5)
[2019-01-27 00:50] LABS: PH 7 (5-8); URINE APPEARANCE Cloudy; URINE BACTERIA Rare /hpf; URINE BILIRUBIN Negative (NEGATIVE); URINE BLOOD 2+ (NEGATIVE); URINE COLOR Yellow; URINE GLUCOSE Negative (NEGATIVE); URINE KETONE Negative (NEGATIVE); URINE LEUKOCYTE ESTERASE 3+ (NEGATIVE); URINE NITRATE Negative (NEGATIVE); URINE PROTEIN(semi-quant) 2+ (NEGATIVE); URINE RBC 20-50 /hpf; URINE UROBILINOGEN Negative (NEGATIVE)
[2019-01-27 01:25] LABS: ALBUMIN 4.7 gm/dL (3.5-5.0); BILIRUBIN,TOTAL 1.4 mg/dL (0.0-1.0); C-REACTIVE PROTEIN 1.9 mg/dL (0.0-0.9); CALCIUM 9.5 mg/dL (8.4-10.2); CREATININE, serum 0.91 (0.52-1.25); POTASSIUM 3.9 mmol/L (3.4-5.0); TOTAL PROTEIN 8.6 gm/dL (6.4-8.2)
[2019-01-27] MEDS ORDERED: CEFTIN500 MG PO (01:44)
[2019-01-27 02:30] VITALS: BP 111/68; PULSE 79
[2019-01-28] MEDS ORDERED: ZOFRAN ODT4 MG PO (01:28)
== END 2019-01-27 02:37 | disposition home or self-care (01) ==
LOC: COL.ER 00:20
PROVIDERS: Nurse Practitioner
DX: N39.0 Urinary tract infection, site not specified (principal); F32.9 Major depressive disorder, single episode, unspecified; Z90.49 Acquired absence of other specified parts of digestive tract; Z98.890 Other specified postprocedural states
CPT/HCPCS: A4216; J0696; J2270; J2405; J7030

== ENCOUNTER 2019-01-27 22:31 | Emergency (ER) | payer SELFPAY ==
[~2019-01-27] VITALS: Ht 170.2 cm; Wt 85.0 kg
[2019-01-27 22:34] VITALS: TEMP 98.6
[2019-01-27 23:48] LABS: BASO % 0.3 % (0.0-2.0); EOS # 0.2 (0.0-0.7); EOS % 2.9 % (0-4.0); GRAN # 3.5 (1.4-6.5); GRAN % 55.3 % (42.2-75.2); HEMATOCRIT 38.7 % (37.0-47.0); HEMOGLOBIN 12.3 g/dl (12.5-16.0); LYMPH # 2.1 (1.2-3.4); MEAN CELL VOLUME 87 fl (80.0-100.0); MEAN CORPUSCULAR HEMOGLOBIN 28 pg (27.0-31.0); MEAN CORPUSCULAR HGB CONC 32 g/dl (33.0-37.0); MEAN PLATELET VOLUME 10.3 fl (7.4-10.4); MONO # 0.5 (0.1-0.6); MONO % 7.3 % (1.7-9.3); PLATELET COUNT 192 K/mm3 (130-400); RED BLOOD COUNT 4.43 M/mm3 (4.10-5.30); REDCELL DISTRIBUTION WIDTH-CV 13.5 % (11.5-14.5)
[2019-01-27 23:57] LABS: ALBUMIN 4.2 gm/dL (3.5-5.0); CREATININE, serum 0.71 (0.52-1.25); POTASSIUM 3.9 mmol/L (3.4-5.0)
[2019-01-28] MEDS ORDERED: ZOFRAN ODT4 MG PO (01:28)
[2019-01-28 01:45] VITALS: BP 116/75; PULSE 63
== END 2019-01-28 01:45 | disposition home or self-care (01) ==
LOC: COL.ER 22:31
PROVIDERS: Nurse Practitioner
DX: N30.90 Cystitis, unspecified without hematuria (principal); F32.9 Major depressive disorder, single episode, unspecified; F41.9 Anxiety disorder, unspecified; J45.909 Unspecified asthma, uncomplicated; Z90.49 Acquired absence of other specified parts of digestive tract; Z88.8 Allergy status to other drugs, medicaments and biological substances
CPT/HCPCS: A4216; J0696; J2405; J3010; J7030; Q9967

== ENCOUNTER 2019-02-23 19:29 | Emergency (ER) | payer SELFPAY ==
[~2019-02-23] VITALS: Ht 170.2 cm; Wt 83.2 kg
[~2019-02-23 19:29] MED LIST changes: +ZOFRAN ODT4 MG PO
[2019-02-23 19:44] VITALS: TEMP 97.4
[2019-02-23 20:11] LABS: COLLECTION METHOD CLEAN CATCH
[2019-02-23 20:19] LABS: MUCOUS Present /lpf; PH 5 (5-8); URINE APPEARANCE Hazy; URINE BACTERIA None Seen /hpf; URINE BILIRUBIN Negative (NEGATIVE); URINE BLOOD Negative (NEGATIVE); URINE COLOR Yellow; URINE GLUCOSE Negative (NEGATIVE); URINE KETONE Negative (NEGATIVE); URINE LEUKOCYTE ESTERASE Trace (NEGATIVE); URINE NITRATE Negative (NEGATIVE); URINE PROTEIN(semi-quant) Negative (NEGATIVE); URINE RBC 0-2 /hpf
[2019-02-23 21:02] LABS: BASO % 0.5 % (0.0-2.0); EOS # 0.3 (0.0-0.7); EOS % 2.9 % (0-4.0); GRAN % 56.2 % (42.2-75.2); HEMATOCRIT 39.9 % (37.0-47.0); HEMOGLOBIN 12.8 g/dl (12.5-16.0); LYMPH # 3.2 (1.2-3.4); LYMPH % 35.6 % (20.0-51.0); MEAN CELL VOLUME 88 fl (80.0-100.0); MEAN CORPUSCULAR HEMOGLOBIN 28 pg (27.0-31.0); MEAN CORPUSCULAR HGB CONC 32 g/dl (33.0-37.0); MEAN PLATELET VOLUME 10.3 fl (7.4-10.4); MONO # 0.4 (0.1-0.6); MONO % 4.7 % (1.7-9.3); PLATELET COUNT 227 K/mm3 (130-400); RED BLOOD COUNT 4.54 M/mm3 (4.10-5.30)
[2019-02-23 21:11] LABS: ALANINE AMINOTRANSFERASE 13 U/L (9-52); ALBUMIN 4.3 gm/dL (3.5-5.0); ALKALINE PHOSPHATASE 68 U/L (50-136); ANION GAP 8 mmol/L (7-16); AST,SGOT 22 U/L (15-37); BILIRUBIN,TOTAL 0.7 mg/dL (0.0-1.0); BLOOD UREA NITROGEN 7 mg/dL (7-17); CALCIUM 8.8 mg/dL (8.4-10.2); CARBON DIOXIDE 25 mmol/L (22-30); CHLORIDE 106 mmol/L (98-107); GLUCOSE 88 mg/dL (74-106); LIPASE 38 U/L (23-300); POTASSIUM 3.9 mmol/L (3.4-5.0); SODIUM 140 mmol/L (137-145); TOTAL PROTEIN 8.1 gm/dL (6.4-8.2)
[2019-02-23 21:12] LABS: C-REACTIVE PROTEIN < 0.5 mg/dL (0.0-0.9)
[2019-02-24 01:04] VITALS: BP 122/77; PULSE 84
== END 2019-02-24 01:04 | disposition home or self-care (01) ==
LOC: COL.ER 19:29
PROVIDERS: Emergency Medicine
DX: O23.90 Unspecified genitourinary tract infection in pregnancy, unspecified trimester (principal); Z98.890 Other specified postprocedural states; Z3A.00 Weeks of gestation of pregnancy not specified
CPT/HCPCS: J2550; J3010; J7030

== ENCOUNTER 2019-03-11 21:22 | Emergency (ER) | payer MEDICAID ==
[~2019-03-11] VITALS: Ht 170.2 cm; Wt 82.7 kg
[2019-03-11 21:28] VITALS: BP 116/75; TEMP 97.8
[2019-03-11 21:56] LABS: COLLECTION METHOD CLEAN CATCH
[2019-03-11 22:06] LABS: MUCOUS Present /lpf; PH 6 (5-8); URINE APPEARANCE Clear; URINE BACTERIA None Seen /hpf; URINE BILIRUBIN Negative (NEGATIVE); URINE BLOOD Negative (NEGATIVE); URINE COLOR Yellow; URINE GLUCOSE Negative (NEGATIVE); URINE KETONE Negative (NEGATIVE); URINE LEUKOCYTE ESTERASE Trace (NEGATIVE); URINE NITRATE Negative (NEGATIVE); URINE PROTEIN(semi-quant) Negative (NEGATIVE); URINE RBC 0-2 /hpf; URINE UROBILINOGEN Negative (NEGATIVE)
[2019-03-11 22:06] LABS: BASO % 0.3 % (0.0-2.0); EOS # 0.4 (0.0-0.7); EOS % 6.4 % (0-4.0); GRAN # 2.7 (1.4-6.5); GRAN % 42.2 % (42.2-75.2); HEMOGLOBIN 12.2 g/dl (12.5-16.0); LYMPH # 2.8 (1.2-3.4); LYMPH % 43.3 % (20.0-51.0); MEAN CELL VOLUME 86 fl (80.0-100.0); MEAN CORPUSCULAR HEMOGLOBIN 28 pg (27.0-31.0); MEAN CORPUSCULAR HGB CONC 33 g/dl (33.0-37.0); MEAN PLATELET VOLUME 10.4 fl (7.4-10.4); MONO # 0.5 (0.1-0.6); MONO % 7.5 % (1.7-9.3); PLATELET COUNT 192 K/mm3 (130-400); RED BLOOD COUNT 4.29 M/mm3 (4.10-5.30); REDCELL DISTRIBUTION WIDTH-CV 13.6 % (11.5-14.5)
[2019-03-11 22:18] LABS: HEMATOCRIT 36.9 % (37.0-47.0)
[2019-03-11 22:33] LABS: ALANINE AMINOTRANSFERASE 14 U/L (9-52); ALKALINE PHOSPHATASE 60 U/L (50-136); ANION GAP 9 mmol/L (7-16); AST,SGOT 21 U/L (15-37); BILIRUBIN,TOTAL 0.4 mg/dL (0.0-1.0); BLOOD UREA NITROGEN 8 mg/dL (7-17); CALCIUM 8.7 mg/dL (8.4-10.2); CARBON DIOXIDE 24 mmol/L (22-30); CHLORIDE 107 mmol/L (98-107); GLUCOSE 85 mg/dL (74-106); POTASSIUM 4.1 mmol/L (3.4-5.0); SODIUM 140 mmol/L (137-145); TOTAL PROTEIN 7.4 gm/dL (6.4-8.2)
[2019-03-11 22:38] LABS: C-REACTIVE PROTEIN < 0.5 mg/dL (0.0-0.9)
[2019-03-12] MEDS ORDERED: PERCOCET 325 MG1 TA2 PO (00:51)
[2019-03-12 01:14] VITALS: PULSE 65
== END 2019-03-12 01:14 | disposition home or self-care (01) ==
LOC: COL.ER 21:22
PROVIDERS: Nurse Practitioner
DX: O03.4 Incomplete spontaneous abortion without complication (principal); J45.909 Unspecified asthma, uncomplicated; F32.9 Major depressive disorder, single episode, unspecified; F41.9 Anxiety disorder, unspecified; Z98.890 Other specified postprocedural states; Z3A.01 Less than 8 weeks gestation of pregnancy; Z90.49 Acquired absence of other specified parts of digestive tract
CPT/HCPCS: J2270; J7030

== ENCOUNTER 2019-03-15 14:22 | Emergency (ER) | payer MEDICAID ==
[~2019-03-15] VITALS: Ht 170.2 cm; Wt 81.8 kg
[2019-03-15 14:38] VITALS: BP 114/62; TEMP 97.6
[2019-03-15 15:19] LABS: COLLECTION METHOD CLEAN CATCH
[2019-03-15 15:25] LABS: PH 7 (5-8); SQUAMOUS EPITHELIAL 0-2 /hpf; URINE APPEARANCE Clear; URINE BACTERIA Rare /hpf; URINE BILIRUBIN Negative (NEGATIVE); URINE BLOOD 2+ (NEGATIVE); URINE COLOR Straw; URINE GLUCOSE Negative (NEGATIVE); URINE KETONE Negative (NEGATIVE); URINE LEUKOCYTE ESTERASE Negative (NEGATIVE); URINE NITRATE Negative (NEGATIVE); URINE PROTEIN(semi-quant) Negative (NEGATIVE); URINE UROBILINOGEN Negative (NEGATIVE)
[2019-03-15 15:26] LABS: BASO % 0.3 % (0.0-2.0); EOS # 0.3 (0.0-0.7); EOS % 4.6 % (0-4.0); GRAN # 3.3 (1.4-6.5); GRAN % 52.5 % (42.2-75.2); HEMOGLOBIN 12.8 g/dl (12.5-16.0); LYMPH # 2.4 (1.2-3.4); LYMPH % 37.3 % (20.0-51.0); MEAN CELL VOLUME 89 fl (80.0-100.0); MEAN CORPUSCULAR HEMOGLOBIN 29 pg (27.0-31.0); MEAN CORPUSCULAR HGB CONC 32 g/dl (33.0-37.0); MEAN PLATELET VOLUME 10.7 fl (7.4-10.4); MONO # 0.3 (0.1-0.6); PLATELET COUNT 200 K/mm3 (130-400); RED BLOOD COUNT 4.49 M/mm3 (4.10-5.30); REDCELL DISTRIBUTION WIDTH-CV 13.2 % (11.5-14.5)
[2019-03-15 15:38] LABS: ALANINE AMINOTRANSFERASE 22 U/L (9-52); ALKALINE PHOSPHATASE 59 U/L (50-136); ANION GAP 8 mmol/L (7-16); AST,SGOT 26 U/L (15-37); BILIRUBIN,TOTAL 0.5 mg/dL (0.0-1.0); BLOOD UREA NITROGEN 6 mg/dL (7-17); CALCIUM 8.9 mg/dL (8.4-10.2); CARBON DIOXIDE 25 mmol/L (22-30); CHLORIDE 108 mmol/L (98-107); CREATININE, serum 0.66 (0.52-1.25); GLUCOSE 89 mg/dL (74-106); LIPASE 33 U/L (23-300); POTASSIUM 4.1 mmol/L (3.4-5.0); SODIUM 140 mmol/L (137-145); TOTAL PROTEIN 7.4 gm/dL (6.4-8.2)
[2019-03-15 15:39] LABS: C-REACTIVE PROTEIN < 0.5 mg/dL (0.0-0.9)
[2019-03-15] MEDS ORDERED: NORCO 325 MG-51 TAB PO (16:33)
[2019-03-15 19:00] VITALS: PULSE 54
== END 2019-03-15 19:00 | disposition home or self-care (01) ==
LOC: COL.ER 14:22
PROVIDERS: Family Medicine
DX: R10.11 Right upper quadrant pain (principal); G89.29 Other chronic pain
CPT/HCPCS: J1885; J2270; J2405; J7030; Q9967

== ENCOUNTER 2019-03-21 17:15 | Emergency (ER) | payer MEDICAID ==
[~2019-03-21] VITALS: Ht 170.2 cm; Wt 82.7 kg
[2019-03-21 18:15] VITALS: TEMP 97.8
[2019-03-21 19:56] LABS: COLLECTION METHOD CLEAN CATCH
[2019-03-21 20:00] LABS: BASO % 0.4 % (0.0-2.0); EOS # 0.3 (0.0-0.7); EOS % 4.1 % (0-4.0); GRAN # 3.6 (1.4-6.5); GRAN % 49.2 % (42.2-75.2); HEMATOCRIT 42.4 % (37.0-47.0); HEMOGLOBIN 13.7 g/dl (12.5-16.0); LYMPH % 40.7 % (20.0-51.0); MEAN CELL VOLUME 87 fl (80.0-100.0); MEAN CORPUSCULAR HEMOGLOBIN 28 pg (27.0-31.0); MEAN CORPUSCULAR HGB CONC 32 g/dl (33.0-37.0); MEAN PLATELET VOLUME 10.4 fl (7.4-10.4); MONO # 0.4 (0.1-0.6); MONO % 5.5 % (1.7-9.3); PLATELET COUNT 249 K/mm3 (130-400); RED BLOOD COUNT 4.85 M/mm3 (4.10-5.30); REDCELL DISTRIBUTION WIDTH-CV 13.2 % (11.5-14.5)
[2019-03-21 20:13] LABS: ALANINE AMINOTRANSFERASE 18 U/L (9-52); ALBUMIN 4.5 gm/dL (3.5-5.0); ALKALINE PHOSPHATASE 77 U/L (50-136); ANION GAP 8 mmol/L (7-16); AST,SGOT 26 U/L (15-37); BILIRUBIN,TOTAL 0.6 mg/dL (0.0-1.0); BLOOD UREA NITROGEN 8 mg/dL (7-17); CALCIUM 9.3 mg/dL (8.4-10.2); CARBON DIOXIDE 26 mmol/L (22-30); CHLORIDE 106 mmol/L (98-107); CREATININE, serum 0.71 (0.52-1.25); GLUCOSE 92 mg/dL (74-106); LIPASE 24 U/L (23-300); POTASSIUM 4.2 mmol/L (3.4-5.0); SODIUM 141 mmol/L (137-145); TOTAL PROTEIN 8.3 gm/dL (6.4-8.2)
[2019-03-21 20:14] LABS: C-REACTIVE PROTEIN < 0.5 mg/dL (0.0-0.9)
[2019-03-21 20:15] LABS: PH 5 (5-8); SQUAMOUS EPITHELIAL 0-2 /hpf; URINE APPEARANCE Clear; URINE BACTERIA Rare /hpf; URINE BILIRUBIN Negative (NEGATIVE); URINE BLOOD Negative (NEGATIVE); URINE COLOR Yellow; URINE GLUCOSE Negative (NEGATIVE); URINE KETONE Negative (NEGATIVE); URINE LEUKOCYTE ESTERASE Negative (NEGATIVE); URINE NITRATE Negative (NEGATIVE); URINE PROTEIN(semi-quant) Negative (NEGATIVE); URINE RBC 0-2 /hpf; URINE UROBILINOGEN Negative (NEGATIVE)
[2019-03-21] MEDS ORDERED: ZOFRAN ODT4 MG PO (21:55)
[2019-03-21 22:00] VITALS: BP 101/72; PULSE 58
== END 2019-03-21 22:25 | disposition home or self-care (01) ==
LOC: COL.ER 17:15
PROVIDERS: Physician Assistant
DX: R10.12 Left upper quadrant pain (principal); R10.32 Left lower quadrant pain; R11.2 Nausea with vomiting, unspecified; R19.7 Diarrhea, unspecified; R10.31 Right lower quadrant pain; G89.29 Other chronic pain; F32.9 Major depressive disorder, single episode, unspecified; F41.9 Anxiety disorder, unspecified; Z98.890 Other specified postprocedural states
CPT/HCPCS: J1885; J2270; J2405; J7030

== ENCOUNTER 2019-05-13 19:32 | Emergency (ER) | payer MEDICAID ==
[~2019-05-13] VITALS: Ht 170.2 cm; Wt 82.7 kg
[2019-05-13 19:51] VITALS: BP 122/88; PULSE 86; TEMP 98.1
[2019-05-13] MEDS ORDERED: NORCO 325 MG-51 TAB PO (22:12)
[2019-05-13] MEDS ORDERED: CLEOCIN HCL300 MG PO (22:12)
== END 2019-05-13 23:30 | disposition home or self-care (01) ==
LOC: COL.ER 19:32
DX: L05.01 Pilonidal cyst with abscess (principal)

== ENCOUNTER 2019-05-15 21:23 | Emergency (ER) | payer MEDICAID ==
[~2019-05-15] VITALS: Ht 170.2 cm; Wt 82.7 kg
[~2019-05-15 21:23] MED LIST changes: +CLEOCIN HCL300 MG PO
[2019-05-15 21:36] VITALS: BP 120/79; TEMP 98.2
[2019-05-15] MEDS ORDERED: PERCOCET 325 MG1 TA2 PO (23:04)
[2019-05-15 23:20] VITALS: PULSE 76
== END 2019-05-15 23:20 | disposition home or self-care (01) ==
LOC: COL.ER 21:23
DX: L05.01 Pilonidal cyst with abscess (principal)
CPT/HCPCS: J0780; J1170; J1885

== ENCOUNTER 2019-06-08 18:17 | Emergency (ER) | payer MEDICAID ==
[~2019-06-08] VITALS: Ht 170.2 cm; Wt 82.7 kg
[2019-06-08 18:37] VITALS: TEMP 97.8
[2019-06-08 20:23] VITALS: BP 111/73; PULSE 90
== END 2019-06-08 20:23 | disposition home or self-care (01) ==
LOC: COL.ER 18:17
DX: M25.511 Pain in right shoulder (principal); F41.9 Anxiety disorder, unspecified; F32.9 Major depressive disorder, single episode, unspecified; Z87.81 Personal history of (healed) traumatic fracture; X50.0XXA Overexertion from strenuous movement or load, initial encounter

== ENCOUNTER → 2019-06-18 | Outpatient (CLI) | payer MEDICAID | LOC: COL.RAD 11:14 | DX: S42.021D Displaced fracture of shaft of right clavicle, subsequent encounter for fracture with routine healing (principal) ==

== ENCOUNTER 2019-08-21 17:45 | Emergency (ER) | payer MEDICAID ==
[~2019-08-21] VITALS: Ht 170.2 cm; Wt 82.7 kg
[2019-08-21 17:51] VITALS: BP 126/72; TEMP 98.2
[2019-08-21 18:06] LABS: COLLECTION METHOD CLEAN CATCH
[2019-08-21 18:10] LABS: BASO % 0.4 % (0.0-2.0); EOS # 0.1 (0.0-0.7); EOS % 1.5 % (0-4.0); GRAN # 5.3 (1.4-6.5); GRAN % 62.6 % (42.2-75.2); HEMATOCRIT 41.7 % (37.0-47.0); HEMOGLOBIN 13.9 g/dl (12.5-16.0); LYMPH # 2.6 (1.2-3.4); LYMPH % 30.7 % (20.0-51.0); MEAN CELL VOLUME 86 fl (80.0-100.0); MEAN CORPUSCULAR HEMOGLOBIN 29 pg (27.0-31.0); MEAN CORPUSCULAR HGB CONC 33 g/dl (33.0-37.0); MEAN PLATELET VOLUME 9.7 fl (7.4-10.4); MONO # 0.4 (0.1-0.6); MONO % 4.6 % (1.7-9.3); PLATELET COUNT 211 K/mm3 (130-400); RED BLOOD COUNT 4.85 M/mm3 (4.10-5.30); REDCELL DISTRIBUTION WIDTH-CV 13.1 % (11.5-14.5)
[2019-08-21 18:15] LABS: PH 7 (5-8); SQUAMOUS EPITHELIAL 0-2 /hpf; URINE APPEARANCE Clear; URINE BACTERIA None Seen /hpf; URINE BILIRUBIN Negative (NEGATIVE); URINE BLOOD Negative (NEGATIVE); URINE COLOR Yellow; URINE GLUCOSE Negative (NEGATIVE); URINE KETONE Negative (NEGATIVE); URINE LEUKOCYTE ESTERASE Negative (NEGATIVE); URINE NITRATE Negative (NEGATIVE); URINE PROTEIN(semi-quant) Negative (NEGATIVE); URINE RBC 0-2 /hpf; URINE UROBILINOGEN Negative (NEGATIVE)
[2019-08-21 18:24] LABS: ALANINE AMINOTRANSFERASE 22 U/L (4-34); ALBUMIN 4.3 gm/dL (3.5-5.0); ALKALINE PHOSPHATASE 67 U/L (50-136); ANION GAP 10 mmol/L (7-16); AST,SGOT 29 U/L (15-37); BILIRUBIN,TOTAL 0.9 mg/dL (0.0-1.0); BLOOD UREA NITROGEN 6 mg/dL (7-17); CALCIUM 9.3 mg/dL (8.4-10.2); CARBON DIOXIDE 21 mmol/L (22-30); CHLORIDE 104 mmol/L (98-107); CREATININE, serum 0.66 (0.52-1.25); GLUCOSE 116 mg/dL (74-106); POTASSIUM 3.6 mmol/L (3.4-5.0); SODIUM 135 mmol/L (137-145); TOTAL PROTEIN 8.3 gm/dL (6.4-8.2)
[2019-08-21 18:25] LABS: C-REACTIVE PROTEIN < 0.5 mg/dL (0.0-0.9)
[2019-08-21] MEDS ORDERED: PHENERGAN 25 TA25 MG PO (21:26)
[2019-08-21 21:50] VITALS: PULSE 67
== END 2019-08-21 21:50 | disposition home or self-care (01) ==
LOC: COL.ER 17:45
PROVIDERS: Nurse Practitioner
DX: O26.891 Other specified pregnancy related conditions, first trimester (principal); O21.9 Vomiting of pregnancy, unspecified; O99.341 Other mental disorders complicating pregnancy, first trimester; O99.511 Diseases of the respiratory system complicating pregnancy, first trimester; R10.2 Pelvic and perineal pain; J45.909 Unspecified asthma, uncomplicated; F32.9 Major depressive disorder, single episode, unspecified; Z3A.01 Less than 8 weeks gestation of pregnancy
CPT/HCPCS: J2270; J2550; J7030

== ENCOUNTER 2019-09-08 14:47 | Emergency (ER) | payer MEDICAID ==
[2019-09-08 15:59] LABS: PROTHROMBIN TIME 11.6 SECONDS (9.7-12.8)
[2019-09-08 16:00] LABS: BASO % 0.2 % (0.0-2.0); EOS # 0.1 (0.0-0.7); EOS % 1.9 % (0-4.0); GRAN # 2.4 (1.4-6.5); GRAN % 45.4 % (42.2-75.2); HEMATOCRIT 39.1 % (37.0-47.0); LYMPH # 2.3 (1.2-3.4); MEAN CELL VOLUME 89 fl (80.0-100.0); MEAN CORPUSCULAR HEMOGLOBIN 29 pg (27.0-31.0); MEAN CORPUSCULAR HGB CONC 33 g/dl (33.0-37.0); MEAN PLATELET VOLUME 10.8 fl (7.4-10.4); MONO # 0.4 (0.1-0.6); MONO % 6.9 % (1.7-9.3); PLATELET COUNT 61 K/mm3 (130-400); RED BLOOD COUNT 4.42 M/mm3 (4.10-5.30); REDCELL DISTRIBUTION WIDTH-CV 13.2 % (11.5-14.5)
[2019-09-08 16:02] LABS: PARTIAL THROMBOPLASTIN TIME 17.6 SECONDS (26.0-37.0)
[2019-09-08 16:09] LABS: ALBUMIN 3.8 gm/dL (3.5-5.0); BILIRUBIN,TOTAL 0.8 mg/dL (0.0-1.0); CALCIUM 8.9 mg/dL (8.4-10.2); CREATININE, serum 0.61 (0.52-1.25); POTASSIUM 3.8 mmol/L (3.4-5.0); TOTAL PROTEIN 7.4 gm/dL (6.4-8.2)
[2019-09-08 16:35] VITALS: TEMP 98.7
[2019-09-08 17:45] VITALS: BP 105/70; PULSE 62
== END 2019-09-08 18:04 | disposition short-term general hospital (02) ==
LOC: COL.ER 14:47
PROVIDERS: Emergency Medicine
DX: O99.351 Diseases of the nervous system complicating pregnancy, first trimester (principal); R29.818 Other symptoms and signs involving the nervous system
CPT/HCPCS: J7030

== ENCOUNTER 2019-11-17 12:00 | Emergency (ER) | payer MEDICAID ==
[~2019-11-17] VITALS: Ht 170.2 cm; Wt 78.2 kg
[2019-11-17 12:08] VITALS: TEMP 98.6
[2019-11-17 14:09] LABS: BASO % 0.3 % (0.0-2.0); EOS # 0.1 (0.0-0.7); GRAN # 3.8 (1.4-6.5); GRAN % 61.5 % (42.2-75.2); HEMOGLOBIN 12.2 g/dl (12.5-16.0); LYMPH # 1.9 (1.2-3.4); LYMPH % 30.6 % (20.0-51.0); MEAN CELL VOLUME 87 fl (80.0-100.0); MEAN CORPUSCULAR HEMOGLOBIN 30 pg (27.0-31.0); MEAN CORPUSCULAR HGB CONC 35 g/dl (33.0-37.0); MEAN PLATELET VOLUME 11.1 fl (7.4-10.4); MONO # 0.3 (0.1-0.6); MONO % 5.4 % (1.7-9.3); PLATELET COUNT 178 K/mm3 (130-400); RED BLOOD COUNT 4.01 M/mm3 (4.10-5.30); REDCELL DISTRIBUTION WIDTH-CV 13.4 % (11.5-14.5)
[2019-11-17 14:13] LABS: ALBUMIN 3.5 gm/dL (3.5-5.0); BILIRUBIN,TOTAL 0.6 mg/dL (0.0-1.0); CALCIUM 8.8 mg/dL (8.4-10.2); CREATININE, serum 0.52 (0.52-1.25); POTASSIUM 3.6 mmol/L (3.4-5.0); TOTAL PROTEIN 7.1 gm/dL (6.4-8.2)
[2019-11-17 14:35] LABS: HEMATOCRIT 34.9 % (37.0-47.0)
[2019-11-17 15:12] LABS: COLLECTION METHOD CLEAN CATCH
[2019-11-17 15:23] LABS: MUCOUS Present /lpf; PH 7 (5-8); SQUAMOUS EPITHELIAL 20-50 /hpf; URINE APPEARANCE Cloudy; URINE BACTERIA Rare /hpf; URINE BILIRUBIN Negative (NEGATIVE); URINE BLOOD Negative (NEGATIVE); URINE COLOR Yellow; URINE GLUCOSE Negative (NEGATIVE); URINE KETONE Negative (NEGATIVE); URINE LEUKOCYTE ESTERASE 3+ (NEGATIVE); URINE NITRATE Negative (NEGATIVE); URINE PROTEIN(semi-quant) Negative (NEGATIVE); URINE RBC 0-2 /hpf
[2019-11-17 15:26] LABS: TRICYCLIC ANTIDEPRESS URINE NEGATIVE
[2019-11-17 21:00] VITALS: BP 116/74; PULSE 81
== END 2019-11-17 21:00 | disposition home or self-care (01) ==
LOC: COL.ER 12:00
PROVIDERS: Physician Assistant
DX: O23.92 Unspecified genitourinary tract infection in pregnancy, second trimester (principal); O26.892 Other specified pregnancy related conditions, second trimester; O99.342 Other mental disorders complicating pregnancy, second trimester; R53.1 Weakness; R20.2 Paresthesia of skin; F32.9 Major depressive disorder, single episode, unspecified; F41.9 Anxiety disorder, unspecified; Z3A.19 19 weeks gestation of pregnancy
CPT/HCPCS: J0696; J1200

== ENCOUNTER 2019-11-19 12:51 | Emergency (ER) | payer MEDICAID ==
[~2019-11-19] VITALS: Ht 170.2 cm; Wt 82.7 kg
[2019-11-19 12:55] VITALS: TEMP 97.6
[2019-11-19 17:08] VITALS: BP 111/74; PULSE 71
== END 2019-11-19 17:10 | disposition home or self-care (01) ==
LOC: COL.ER 12:51
DX: O09.92 Supervision of high risk pregnancy, unspecified, second trimester (principal); Z3A.19 19 weeks gestation of pregnancy; Z87.891 Personal history of nicotine dependence

== ENCOUNTER → 2019-12-10 | Outpatient (CLI) | payer MEDICAID ==
--- NOTE | 2019-12-09 00:10 | NUR ---
G4L2 at 22 weeks and 1 day gestation arrives to unit by wheelchair with complaint of lower back pain/pressure and lower abdominal pain. Pt also reports she went to the bathroom and had a puddle under her and thinks her water broke. Pt with history of deliveries at 31 weeks vaginally and 30 weeks c/s for breech. Pt reports feeling movement. Pt denies headaches, blurry vision, or RUQ pain. US and toco explained and applied. Vital signs obtained. Admission assessment started. SVE closed/thick/high by YVROSE Jo. Amnitrace negative by YVROSE Jo.
[~2019-12-10] VITALS: Ht 170.2 cm; Wt 80.5 kg
--- NOTE | 2019-12-10 00:20 | NUR ---
[id number] FHR 150s by US. No activity on toco. Pt reports back pain/pressure is constant, does not come and go like contractions.
[2019-12-10 00:30] VITALS: BP 122/76; PULSE 77; TEMP 98.3
[2019-12-10 00:46] LABS: COLLECTION METHOD CLEAN CATCH
[2019-12-10 01:46] LABS: PH 7 (5-8); SQUAMOUS EPITHELIAL 0-2 /hpf; URINE APPEARANCE Clear; URINE BACTERIA Many /hpf; URINE BILIRUBIN Negative (NEGATIVE); URINE BLOOD Negative (NEGATIVE); URINE COLOR Straw; URINE GLUCOSE Negative (NEGATIVE); URINE KETONE Negative (NEGATIVE); URINE LEUKOCYTE ESTERASE Negative (NEGATIVE); URINE NITRATE Negative (NEGATIVE); URINE PROTEIN(semi-quant) Negative (NEGATIVE); URINE RBC 0-2 /hpf; URINE UROBILINOGEN Negative (NEGATIVE)
--- NOTE | 2019-12-10 02:00 | NUR ---
Updated patient on lab results and prescription. 1 g tylenol given orally. Pt understands to fill script and follow up in office. Discharge instructions reviewed, pt verbalized understanding. Pt seen ambulating off unit.
== END ==
LOC: LDRO
PROVIDERS: Obstetrics & Gynecology
DX: O26.892 Other specified pregnancy related conditions, second trimester (principal); M54.5 Low back pain; Z3A.22 22 weeks gestation of pregnancy

== ENCOUNTER 2019-12-16 17:17 | Outpatient (CLI) | payer MEDICAID ==
[~2019-12-16] VITALS: Ht 170.2 cm; Wt 79.8 kg
[2019-12-16 17:00] VITALS: BP 113/73; PULSE 101; TEMP 98.1
[2019-12-16] MEDS ORDERED: CEPHALEXIN500 M1 (17:28)
--- NOTE | 2019-12-16 17:40 | NUR ---
1700 PATIENT COMES TO HOSPITAL WITH COMPLAINTS OF BLEEDING OFF AND ON TODAY. PATIENT HAS FELT LIKE HAVE TO HAVE BOWEL MOVEMENT ALL DAY TO DAY BUT IS AFRAID TO PUSH FOR BM, IS AFRAID WILL HAVE BABY. EFM ON FHT 135,BABY VERY ACTIVE AT THIS TIME. NO CONTRACTIONS ON MONITOR OR PALPATED. ABDOMEN PALPATES SOFT. PATIENT COMPLAINS OF ALL DISCOMFORT IS IN LOWER BACK. ASSESSMENT COMPLETED. SVE CLOSED/ THICK/HIGH. NO BLOOD NOTED TO GLOVE WITH EXAM. . DR LE CALLED AND ALL ABOVE INFORMATION REPORTED. ORDERS TO GIVE MOM AND DULCOLAX SUPP. NOW.
--- NOTE | 2019-12-16 17:48 | NUR ---
1730 PATIENT STATES HAS TO URINATE AND HAS BURNING. UA OBTAINED AT THIS TIME. MOM AND SUPPOSITORY GIVEN. DR LE CALLED BACK AND REPORTED ABOUT BURNING WITH UNRINATION. PATIENT HAS BEEN ON KEFLEX FOR WEEK NOW FOR A UTI. ORDERS FOR A UA AND CBC AT THIS TIME. PATIENT UP TO BATHROOM.VOIDS DARK URINE, SENT TO LAB AT THIS TIME. PATIENT TEARY EYED AND UNCOMFORTABLE
[2019-12-16 17:54] VITALS: PULSE 78
--- NOTE | 2019-12-16 18:15 | NUR ---
1814- REPORT RECEIVED, CARE ASSUMED. 1843- LAB RESULTS BACK, CALLED TO DR LE CHARTED. 1849- PT UPDATED ON RESULTS OF LABWORK AND ALSO DR LE'S PLAN OF CARE FOR CHANGING ANTIBIOTICS. PT VERBALIZES UNDERSTANDING. MONITORS REMOVED FOR DISMISSAL. 1909- DISMISSAL INSTRUCTIONS DISCUSSED AND DOSE OF MACROBID TAKEN. PT VERBALIZES UNDERSTANDING OF INSTRUCTIONS. PT DISMISSED AMBULATORY TO HOME, ACCOMPANIED BY MOTHER.
[2019-12-16 18:22] LABS: COLLECTION METHOD CLEAN CATCH
[2019-12-16 18:26] LABS: BASO % 0.1 % (0.0-2.0); EOS # 0.1 (0.0-0.7); EOS % 0.8 % (0-4.0); GRAN # 6.3 (1.4-6.5); HEMOGLOBIN 11.1 g/dl (12.5-16.0); LYMPH # 1.5 (1.2-3.4); LYMPH % 18.1 % (20.0-51.0); MEAN CELL VOLUME 88 fl (80.0-100.0); MEAN CORPUSCULAR HEMOGLOBIN 30 pg (27.0-31.0); MEAN CORPUSCULAR HGB CONC 34 g/dl (33.0-37.0); MONO # 0.4 (0.1-0.6); MONO % 4.8 % (1.7-9.3); PLATELET COUNT 226 K/mm3 (130-400); RED BLOOD COUNT 3.71 M/mm3 (4.10-5.30); REDCELL DISTRIBUTION WIDTH-CV 13.8 % (11.5-14.5)
[2019-12-16 18:37] LABS: HEMATOCRIT 32.6 % (37.0-47.0)
[2019-12-16 18:37] LABS: BUDDING YEAST Present /hpf; PH 6 (5-8); URINE APPEARANCE Turbid; URINE BACTERIA None Seen /hpf; URINE BILIRUBIN Negative (NEGATIVE); URINE BLOOD 1+ (NEGATIVE); URINE COLOR Amber; URINE GLUCOSE Negative (NEGATIVE); URINE KETONE Negative (NEGATIVE); URINE LEUKOCYTE ESTERASE 3+ (NEGATIVE); URINE NITRATE Negative (NEGATIVE); URINE PROTEIN(semi-quant) 2+ (NEGATIVE); URINE RBC 20-50 /hpf; URINE UROBILINOGEN >=4.0 mg/dL (NEGATIVE); URINE WBC >50 /hpf
[2019-12-16 18:50] VITALS: PULSE 77
== END 2019-12-16 19:10 | disposition home or self-care (01) ==
LOC: LDRO 17:17
PROVIDERS: Obstetrics & Gynecology
DX: O26.892 Other specified pregnancy related conditions, second trimester (principal); Z3A.23 23 weeks gestation of pregnancy; R10.9 Unspecified abdominal pain

== ENCOUNTER 2020-02-03 21:28 | Outpatient (CLI) | payer MEDICAID ==
[~2020-02-03] VITALS: Ht 170.2 cm; Wt 84.1 kg
[~2020-02-03 21:28] MED LIST changes: +CEPHALEXIN500 M1
--- NOTE | 2020-02-03 21:30 | NUR ---
PT TO UNIT VIA WHEELCHAIR WITH COMPLAINTS OF ABDOMINAL PAIN AND POSSIBLE SROM. ASSISTED PT INTO GOWN, EFM APPLIED, VS OBTAINED, AMNIOSWAB INCONCLUSIVE, SVE PERFORMED, SECOND AMNIOSWAB NEGATIVE.
[2020-02-03 22:00] VITALS: BP 118/77; PULSE 97; TEMP 98.2
[2020-02-03 22:30] VITALS: PULSE 84
[2020-02-03 23:16] VITALS: BP 118/77; PULSE 97; TEMP 98.2
[2020-02-03 23:42] LABS: COLLECTION METHOD CLEAN CATCH
[2020-02-03] MEDS ORDERED: MAKENA250 MG/1 M IM (23:43)
[2020-02-03] MEDS ORDERED: FLAGYL500 MG PO (23:43)
[2020-02-03 23:48] LABS: MUCOUS Present /lpf; PH 6 (5-8); URINE APPEARANCE Hazy; URINE BACTERIA None Seen /hpf; URINE BILIRUBIN Negative (NEGATIVE); URINE BLOOD 3+ (NEGATIVE); URINE COLOR Yellow; URINE GLUCOSE Negative (NEGATIVE); URINE KETONE Negative (NEGATIVE); URINE LEUKOCYTE ESTERASE 2+ (NEGATIVE); URINE NITRATE Negative (NEGATIVE); URINE PROTEIN(semi-quant) Negative (NEGATIVE); URINE UROBILINOGEN Negative (NEGATIVE); URINE WBC 20-50 /hpf
--- NOTE | 2020-02-04 02:00 | NUR ---
0142- PT MAY DC HOME PER DR. AGUIRRE. 0143- MONITORING DC'S AT THIS TIME. PT INSTRUCTED TO CHANGE INTO STREET [employer]OTHES WHILE DISCHARGE PAPERWORK IS PREPARED. 0156- 100MG MACROBID PO GIVEN NOW FOR UTI. PRESCRIPTION FOR 100MG MACROBID PO BID X7 DAYS CALLED INTO [facility]. PT INSTRUCTED TO PICK PRESCRIPTION IN THE MORNING. DISCHARGE INSTRUCTIONS REVIEWED WITH PT, UNDERSTANDING VERBALIZED. 0200- PT LEFT THE UNIT AMBULATORY FOR HOME.
== END 2020-02-04 02:00 | disposition home or self-care (01) ==
LOC: LDRO 21:28
PROVIDERS: Obstetrics & Gynecology
DX: O62.9 Abnormality of forces of labor, unspecified (principal); Z3A.30 30 weeks gestation of pregnancy

== ENCOUNTER 2020-02-18 12:18 | Outpatient (CLI) | payer MEDICAID ==
[~2020-02-18] VITALS: Ht 170.2 cm; Wt 86.8 kg
--- NOTE | 2020-02-18 12:20 | NUR ---
Presents to labor and delivery via wheel chair. States lost muscous plug and has been cramping. Assessment done, questions offered and answered.
--- NOTE | 2020-02-18 12:25 | NUR ---
Patient to LR5 via wheelchair, changed into gown, FHR/TOCO monitors placed. Patient states she lost her mucus plug earlier and started cramping after that. Denies any vaginal bleeding or decreased movement. SVE-unable to reach cervix/high and posterior. Amniotest negative. Assessment completed and questions answered. Dr. Dick notified. See physician notification.
[2020-02-18 13:00] VITALS: BP 134/73; PULSE 134; TEMP 97.6
[2020-02-18 13:20] VITALS: PULSE 96
--- NOTE | 2020-02-18 13:20 | NUR ---
Discharge instructions given and patient understands. Patient told to still go to clinic to get [place] shot that was scheduled today. Patient states "I did not bring the shot with me and I dont want to go home and get it and drive back, that is alot of gas" This nurse advises patient that this shot is important and to call the clinic to see what her other options are. Patient verbalizes understanding. 1325: Patient ambulates off unit with her mother.
== END 2020-02-18 13:25 | disposition home or self-care (01) ==
LOC: LDRO 12:18 → LDR 12:51 → LDRO 13:25
DX: O26.893 Other specified pregnancy related conditions, third trimester (principal); R25.2 Cramp and spasm; Z3A.32 32 weeks gestation of pregnancy; Z87.891 Personal history of nicotine dependence
CPT/HCPCS: OP

== ENCOUNTER 2020-03-03 13:32 | Outpatient (CLI) | payer MEDICAID ==
[~2020-03-03] VITALS: Ht 170.2 cm; Wt 86.8 kg
--- NOTE | 2020-03-03 13:40 | NUR ---
1340- 34.1, G3L2 arrives on unit with complaints of decreased movement, pelvic pressure, contractions q 10min, and leaking vagnial fluid. To room LDR4 via wheelchair. Changes into clean gown. Oriented to room. This RN at bedside. EFM applied. 1350- Amnitrace negative. SVE /-4, ballotable. Assessment completed 1415- Dr. Alejo on unit and updated on patient. See physician notification. 1425- IV started. LR bolus infusing. 1440- Betamethason 12mg IM given. See EMAR.
[2020-03-03 13:55] VITALS: BP 133/78; PULSE 97; TEMP 97.8
[2020-03-03 14:30] VITALS: BP 107/68; PULSE 86
[2020-03-03 15:00] VITALS: BP 106/62; PULSE 85
--- NOTE | 2020-03-03 15:15 | NUR ---
1515- LR bolus in. Dr. Alejo updated on patient. See physician notification. Plan of care reviewed with patient. SVE /-4 and unchanged.
--- NOTE | 2020-03-03 15:30 | NUR ---
1530- IV out. Discharge instructions reviewed. Ambulatory off unit with family.
== END 2020-03-03 15:30 | disposition home or self-care (01) ==
LOC: LDRO 13:32
DX: O42.913 Preterm premature rupture of membranes, unspecified as to length of time between rupture and onset of labor, third trimester (principal); O26.893 Other specified pregnancy related conditions, third trimester; R10.2 Pelvic and perineal pain; Z3A.34 34 weeks gestation of pregnancy
CPT/HCPCS: J0702; J7120

== ENCOUNTER 2020-03-08 21:15 | Outpatient (CLI) | payer MEDICAID ==
[~2020-03-08] VITALS: Ht 170.2 cm; Wt 91.4 kg
[2020-03-08 21:33] VITALS: BP 118/68; PULSE 113; TEMP 97.5
--- NOTE | 2020-03-08 21:35 | NUR ---
G4L2 at 34.6 weeks gestation to LDR4 with c/o vaginal pressure and back pain. EFMs explained and applied. FHR reactive. Irritable CTX pattern per TOCO. She denies feeling any CTX, leaking of fluid, or vaginal bleeding. VSS. SVE /-3. Plan of care reviewed. Dr. Villarreal on unit, reviews FHR strip, orders to recheck in 1 hour.
--- NOTE | 2020-03-08 22:35 | NUR ---
SVE with no change. Dr. Villarreal remains on unit. Reviews FHR strip and CTX pattern and orders given to discharge patient home.
[2020-03-08 22:40] VITALS: BP 131/79; PULSE 73
== END 2020-03-08 22:50 | disposition home or self-care (01) ==
LOC: LDRO 21:15 → LDR 22:41 → LDRO 22:50
DX: O42.913 Preterm premature rupture of membranes, unspecified as to length of time between rupture and onset of labor, third trimester (principal); O99.891 Other specified diseases and conditions complicating pregnancy; Z3A.34 34 weeks gestation of pregnancy; R10.2 Pelvic and perineal pain; M54.9 Dorsalgia, unspecified
CPT/HCPCS: OP

== ENCOUNTER 2020-03-12 13:08 | Inpatient (IN) | payer MEDICAID ==
[~2020-03-12] VITALS: Ht 170.2 cm; Wt 91.4 kg
[2020-03-12] VITALS (19 sets, daily range): BP systolic 107–136; BP diastolic 51–96; PULSE 78–127; TEMP 97.9
--- NOTE | 2020-03-12 13:20 | NUR ---
1320- Pt into bed. EFM and TOCO on and tracing. VSS. 1325- O2 sat monitor on and tracing maternal HR. Assessment completed.
[2020-03-12] MEDS ORDERED: TYLENOL 500MG500 MG PO (13:28)
--- NOTE | 2020-03-12 16:00 | NUR ---
1367 Dr. Alejo visits with patient. section called. 1600 Iv start to right hand, fluids of lactated ringers infusing bolus as ordered by anesthesia.
[2020-03-12 16:14] LABS: BASO % 0.2 % (0.0-2.0); EOS # 0.1 (0.0-0.7); EOS % 0.7 % (0-4.0); GRAN # 5.3 (1.4-6.5); GRAN % 62.7 % (42.2-75.2); HEMOGLOBIN 10.6 g/dl (12.5-16.0); LYMPH # 2.4 (1.2-3.4); LYMPH % 28.2 % (20.0-51.0); MEAN CELL VOLUME 84 fl (80.0-100.0); MEAN CORPUSCULAR HEMOGLOBIN 26 pg (27.0-31.0); MEAN CORPUSCULAR HGB CONC 32 g/dl (33.0-37.0); MONO # 0.7 (0.1-0.6); MONO % 7.8 % (1.7-9.3); PLATELET COUNT 256 K/mm3 (130-400); RED BLOOD COUNT 4.01 M/mm3 (4.10-5.30); REDCELL DISTRIBUTION WIDTH-CV 13.6 % (11.5-14.5)
[2020-03-12 16:18] LABS: HEMATOCRIT 33.6 % (37.0-47.0)
--- NOTE | 2020-03-12 17:40 | NUR ---
To pacu via bed with this nurse and nurse Maru. Nibp on, leads on. Report given by anesthesia Justen. Denies any pain or discomfort at this time.
[2020-03-13 01:00] VITALS: BP 106/60; PULSE 81; TEMP 98.7
[2020-03-13 04:45] VITALS: BP 119/71; PULSE 77; TEMP 98.7
[2020-03-13 07:45] VITALS: BP 116/70; PULSE 64; TEMP 97.7
--- NOTE | 2020-03-13 08:47 | NUR ---
PT SLEEPING, DECLINED BEDSIDE REPORT. REPORT RECEIVED FROM OFF GOING RNCHARY. CARE TAKEN OVER BY THIS RN.
[2020-03-13] MEDS ORDERED: IBU800 M1 PO (09:50)
[2020-03-13] MEDS ORDERED: PERCOCET 325 MG1 TA2 PO (09:50)
[2020-03-13 12:17] VITALS: BP 120/78; PULSE 63; TEMP 97.8
[2020-03-13 15:39] VITALS: BP 124/78; PULSE 90; TEMP 97.8
[2020-03-13 20:15] VITALS: BP 104/59; PULSE 69; TEMP 98.7
[2020-03-14 08:05] VITALS: BP 125/81; PULSE 75; TEMP 97.7
== END 2020-03-14 15:05 | disposition home or self-care (01) | DRG 788 ==
LOC: LDRO 13:08 → LDR 15:30 → OB 18:10
PROVIDERS: Student in an Organized Health Care Education/Training Program; ADMIT Obstetrics & Gynecology
PROC: 10D00Z1 Extraction of Products of Conception, Low, Open Approach (ICD-10-PCS; principal; 2020-03-12)
DX: O60.14X0 Preterm labor third trimester with preterm delivery third trimester, not applicable or unspecified (principal); Z37.0 Single live birth; O76 Abnormality in fetal heart rate and rhythm complicating labor and delivery; O34.03 Maternal care for unspecified congenital malformation of uterus, third trimester; Q51.3 Bicornate uterus; O99.02 Anemia complicating childbirth; D64.9 Anemia, unspecified; O99.344 Other mental disorders complicating childbirth; F41.9 Anxiety disorder, unspecified; F32.9 Major depressive disorder, single episode, unspecified; O99.52 Diseases of the respiratory system complicating childbirth; J45.20 Mild intermittent asthma, uncomplicated; O34.211 Maternal care for low transverse scar from previous cesarean delivery; Z3A.35 35 weeks gestation of pregnancy; Z14.8 Genetic carrier of other disease
CPT/HCPCS: J0690; J1100; J1885; J2405; J2590; J7120

== ENCOUNTER 2020-08-18 08:57 | Outpatient (CLI) | payer MEDICAID ==
[2020-08-18] VITALS (8 sets, daily range): BP systolic 101–119; BP diastolic 52–77; PULSE 51–76
[~2020-08-18] VITALS: Ht 170.2 cm; Wt 88.1 kg
[2020-08-18] MEDS ORDERED: LEXAPRO 10MG10 MG PO (09:20)
--- NOTE | 2020-08-18 10:09 | NUR ---
Report from Kait FRANCES. Bandaid tlow middle back CD&I with bandaid dressing. Denies pain and needs at this time. VSS.
[2020-08-18 10:47] LABS: GLUCOSE,CSF 49 mg/dL (40-70); TOTAL PROTEIN,CSF 55 mg/dL (15-45)
[2020-08-18 11:37] LABS: CSF APPEARANCE CLEAR; CSF COLOR COLORLESS
[2020-08-18 11:40] LABS: CSF RBC 0 /mm3 (0-0)
[2020-08-18 11:41] LABS: CSF MONONUCLEAR 100 % (70-100); CSF POLYMORPHONUCLEAR 0 % (0-6)
--- NOTE | 2020-08-18 11:50 | NUR ---
Discharge instructions given. Transferred to private car by rose
== END 2020-08-18 11:50 | disposition home or self-care (01) ==
LOC: COL.RAD 08:57
PROVIDERS: Optometrist
DX: H47.393 Other disorders of optic disc, bilateral (principal)

== ENCOUNTER 2021-01-28 17:05 | Emergency (ER) | payer MEDICAID ==
[~2021-01-28] VITALS: Ht 170.2 cm; Wt 93.2 kg
[~2021-01-28 17:05] MED LIST changes: +LEXAPRO 10MG10 MG PO
[2021-01-28 19:55] LABS: BASO % 0.3 % (0.0-2.0); EOS % 0.2 % (0-4.0); GRAN % 75.4 % (42.2-75.2); HEMATOCRIT 38.4 % (37.0-47.0); HEMOGLOBIN 12.7 g/dl (12.5-16.0); LYMPH # 1.5 K/mm3 (1.2-3.4); MEAN CELL VOLUME 85 fl (80.0-100.0); MEAN CORPUSCULAR HEMOGLOBIN 28 pg (27.0-31.0); MEAN CORPUSCULAR HGB CONC 33 g/dl (33.0-37.0); MEAN PLATELET VOLUME 9.9 fl (7.4-10.4); MONO # 0.7 K/mm3 (0.1-0.6); MONO % 7.7 % (1.7-9.3); PLATELET COUNT 253 K/mm3 (130-400); RED BLOOD COUNT 4.51 M/mm3 (4.10-5.30); REDCELL DISTRIBUTION WIDTH-CV 13.2 % (11.5-14.5)
[2021-01-28 20:10] LABS: ALBUMIN 3.8 gm/dL (3.5-5.0); BILIRUBIN,TOTAL 1.2 mg/dL (0.2-1.2); C-REACTIVE PROTEIN 8.72 mg/dL (0.00-0.50); CALCIUM 9.2 mg/dL (8.4-10.2); CREATININE, serum 1.2 mg/dL (0.57-1.11); POTASSIUM 3.6 mmol/L (3.5-4.5); TOTAL PROTEIN 8.6 gm/dL (6.2-8.1)
[2021-01-28 21:28] LABS: COLLECTION METHOD CLEAN CATCH
[2021-01-28 21:40] LABS: MUCOUS Present /lpf; PH 5 (5-8); URINE APPEARANCE Cloudy; URINE BACTERIA Rare /hpf; URINE BILIRUBIN Negative (NEGATIVE); URINE BLOOD 1+ (NEGATIVE); URINE COLOR Yellow; URINE GLUCOSE Negative (NEGATIVE); URINE KETONE Negative (NEGATIVE); URINE LEUKOCYTE ESTERASE 3+ (NEGATIVE); URINE NITRATE Negative (NEGATIVE); URINE PROTEIN(semi-quant) 1+ (NEGATIVE); URINE UROBILINOGEN Negative (NEGATIVE)
[2021-01-28] MEDS ORDERED: NORCO 325 MG-51 TAB PO (22:03)
[2021-01-28] MEDS ORDERED: CEPHALEXIN500 M1 PO (22:03)
[2021-01-28] MEDS ORDERED: ZOFRAN ODT4 MG PO (22:03)
[2021-01-29 00:06] VITALS: BP 105/57; PULSE 82; TEMP 98.3
== END 2021-01-29 00:06 | disposition home or self-care (01) ==
LOC: COL.ER 17:05
PROVIDERS: Nurse Practitioner
DX: N12 Tubulo-interstitial nephritis, not specified as acute or chronic (principal); J45.909 Unspecified asthma, uncomplicated; F41.9 Anxiety disorder, unspecified; F32.A Depression, unspecified; Z20.822 Contact with and (suspected) exposure to COVID-19; Z79.899 Other long term (current) drug therapy
CPT/HCPCS: J0696; J2405; J3010; J7030

== ENCOUNTER 2022-01-09 14:00 | Outpatient (RCR) | payer MEDICAID ==
[~2022-01-09 14:00] MED LIST changes: +CEPHALEXIN500 M1 PO
== END 2022-01-23 | disposition home or self-care (01) ==
LOC: MKS.ESL.PT
DX: H53.2 Diplopia (principal); G82.50 Quadriplegia, unspecified; F98.5 Adult onset fluency disorder; R47.9 Unspecified speech disturbances

== ENCOUNTER 2022-07-07 15:18 | Outpatient (RCR) | payer MEDICAID | END 2022-07-07 15:19 | LOC: MKS.ESL.PT 15:18 | DX: R29.898 Other symptoms and signs involving the musculoskeletal system (principal); R44.9 Unspecified symptoms and signs involving general sensations and perceptions; R51.9 Headache, unspecified; H53.2 Diplopia; F98.5 Adult onset fluency disorder; G82.50 Quadriplegia, unspecified; R47.9 Unspecified speech disturbances ==

== ENCOUNTER 2023-01-04 13:58 | Emergency (ER) | payer MEDICAID ==
[~2023-01-04] VITALS: Ht 170.2 cm; Wt 99.1 kg
[2023-01-04 15:01] LABS: BASO % 0.3 % (0.0-2.0); EOS # 0.2 K/mm3 (0.0-0.7); EOS % 2.6 % (0.0-4.0); GRAN # 3.8 K/mm3 (1.4-6.5); HEMATOCRIT 43.8 % (37.0-47.0); HEMOGLOBIN 14.2 g/dl (12.5-16.0); LYMPH # 2.5 K/mm3 (1.2-3.4); LYMPH % 37.3 % (20.0-51.0); MEAN CELL VOLUME 89 fl (80.0-100.0); MEAN CORPUSCULAR HEMOGLOBIN 29 pg (27-31); MEAN CORPUSCULAR HGB CONC 32 g/dl (33.0-37.0); MEAN PLATELET VOLUME 9.6 fl (7.4-10.4); MONO # 0.3 K/mm3 (0.1-0.6); MONO % 3.7 % (1.7-9.3); PLATELET COUNT 260 K/mm3 (130-400); RED BLOOD COUNT 4.93 M/mm3 (4.10-5.30); REDCELL DISTRIBUTION WIDTH-CV 13.1 % (11.5-14.5)
[2023-01-04 15:06] LABS: COLLECTION METHOD CLEAN CATCH
[2023-01-04 15:23] LABS: ALANINE AMINOTRANSFERASE 27 U/L (0-55); ALBUMIN 4.1 gm/dL (3.5-5.0); ALKALINE PHOSPHATASE 97 U/L (40-150); ANION GAP 13 mmol/L (7-16); AST,SGOT 25 U/L (5-34); BILIRUBIN,TOTAL 0.7 mg/dL (0.2-1.2); BLOOD UREA NITROGEN 9 mg/dL (7-19); CALCIUM 9.5 mg/dL (8.4-10.2); CARBON DIOXIDE 20 mmol/L (22-29); CHLORIDE 108 mmol/L (98-107); CREATININE, serum 0.88 mg/dL (0.57-1.11); GLUCOSE 115 mg/dL (70-99); POTASSIUM 3.7 mmol/L (3.5-4.5); SODIUM 141 mmol/L (136-145); TOTAL PROTEIN 8.3 gm/dL (6.2-8.1)
[2023-01-04 15:24] LABS: ACETAMINOPHEN < 1.0 ug/mL (10-30); ALCOHOL(ethanol),MEDICAL < 10 mg/dL (0-10); SALICYLATE < 5.0 mg/dL (15.0-30.0)
[2023-01-04 15:33] LABS: TRICYCLIC ANTIDEPRESS URINE NEGATIVE
[2023-01-04 15:35] LABS: URINE APPEARANCE Hazy (CLEAR/HAZY); URINE COLOR Yellow (YELLOW)
[2023-01-04 15:36] LABS: URINE BLOOD Negative (NEGATIVE); URINE GLUCOSE Negative (NEGATIVE); URINE KETONE Negative (NEGATIVE); URINE NITRATE Negative (NEGATIVE); URINE PROTEIN(semi-quant) Negative (NEGATIVE); URINE UROBILINOGEN 0.2 E.U/dL (0.2-1.0)
[2023-01-04] MEDS ORDERED: LATUDA60 MG PO (15:36)
[2023-01-04] MEDS ORDERED: ATARAX 25MG25 MG/TAB PO (15:36)
[2023-01-04] MEDS ORDERED: CELEXA40 MG PO (15:37)
[2023-01-04] MEDS ORDERED: DESYREL 50MG50 MG PO (15:37)
[2023-01-04] MEDS ORDERED: NEURONTIN100 MG/CAP PO (15:38)
[2023-01-04] MEDS ORDERED: LAMICTAL150 MG PO (15:38)
[2023-01-04] MEDS ORDERED: LATUDA40 MG PO (15:39)
[2023-01-04 15:43] LABS: URINE RBC 0-2 /hpf (0-2)
[2023-01-04 15:44] LABS: URINE BACTERIA Moderate /hpf (NONE SEEN)
[2023-01-05 14:28] VITALS: BP 131/88; PULSE 81; TEMP 98.2
== END 2023-01-05 14:57 | disposition home or self-care (01) ==
LOC: COL.ER 13:58
PROVIDERS: Physician Assistant
DX: R45.851 Suicidal ideations (principal); M25.511 Pain in right shoulder; Z91.040 Latex allergy status; Z20.822 Contact with and (suspected) exposure to COVID-19

== ENCOUNTER 2023-03-27 19:12 | Emergency (ER) | payer MEDICARE ==
[~2023-03-27] VITALS: Ht 170.2 cm; Wt 95.5 kg
[~2023-03-27 19:12] MED LIST changes: +ATARAX 25MG25 MG/TAB PO; +CELEXA40 MG PO; +LAMICTAL150 MG PO; +LATUDA40 MG PO; +LATUDA60 MG PO; +NEURONTIN100 MG/CAP PO
[2023-03-27 19:16] VITALS: TEMP 98
[2023-03-27 19:39] LABS: BASO % 0.2 % (0.0-2.0); EOS # 0.2 K/mm3 (0.0-0.7); EOS % 2.2 % (0.0-4.0); GRAN # 5.1 K/mm3 (1.4-6.5); GRAN % 58.3 % (42.2-75.2); HEMATOCRIT 42.7 % (37.0-47.0); HEMOGLOBIN 14.3 g/dl (12.5-16.0); LYMPH % 34.3 % (20.0-51.0); MEAN CELL VOLUME 87 fl (80.0-100.0); MEAN CORPUSCULAR HEMOGLOBIN 29 pg (27-31); MEAN CORPUSCULAR HGB CONC 34 g/dl (33.0-37.0); MEAN PLATELET VOLUME 9.6 fl (7.4-10.4); MONO # 0.4 K/mm3 (0.1-0.6); MONO % 4.9 % (1.7-9.3); PLATELET COUNT 236 K/mm3 (130-400); RED BLOOD COUNT 4.93 M/mm3 (4.10-5.30)
[2023-03-27 20:01] LABS: BILIRUBIN,TOTAL 1.1 mg/dL (0.2-1.2); C-REACTIVE PROTEIN 1.51 mg/dL (0.00-0.50); CALCIUM 9.5 mg/dL (8.4-10.2); CREATININE, serum 0.88 mg/dL (0.57-1.11); POTASSIUM 3.8 mmol/L (3.5-4.5)
[2023-03-27] MEDS ORDERED: NORCO 325 MG-51 TAB PO (21:26)
[2023-03-27 21:41] VITALS: BP 125/80; PULSE 89
[2023-03-27 21:44] LABS: COLLECTION METHOD CLEAN CATCH
[2023-03-27 21:56] LABS: PH 5.5 (5.0-8.5); URINE APPEARANCE Clear (CLEAR/HAZY); URINE COLOR Amber (YELLOW)
[2023-03-27 21:57] LABS: URINE BLOOD Negative (NEGATIVE); URINE GLUCOSE Negative (NEGATIVE); URINE KETONE Negative (NEGATIVE); URINE NITRATE Negative (NEGATIVE); URINE PROTEIN(semi-quant) Negative (NEGATIVE); URINE UROBILINOGEN 0.2 E.U/dL (0.2-1.0)
[2023-03-28] MEDS ORDERED: ZOFRAN ODT4 MG PO (21:24)
== END 2023-03-27 21:41 | disposition home or self-care (01) ==
LOC: COL.ER 19:12
PROVIDERS: Family Medicine
DX: K65.4 Sclerosing mesenteritis (principal); Z91.040 Latex allergy status
CPT/HCPCS: J2270; J2405; J7120; Q9967

== ENCOUNTER 2023-03-28 17:46 | Emergency (ER) | payer MEDICARE ==
[~2023-03-28] VITALS: Ht 170.2 cm; Wt 95.5 kg
[2023-03-28 18:53] LABS: BASO % 0.2 % (0.0-2.0); EOS # 0.2 K/mm3 (0.0-0.7); EOS % 1.7 % (0.0-4.0); GRAN # 5.4 K/mm3 (1.4-6.5); GRAN % 61.2 % (42.2-75.2); HEMATOCRIT 40.2 % (37.0-47.0); HEMOGLOBIN 13.2 g/dl (12.5-16.0); LYMPH # 2.9 K/mm3 (1.2-3.4); LYMPH % 32.4 % (20.0-51.0); MEAN CELL VOLUME 87 fl (80.0-100.0); MEAN CORPUSCULAR HEMOGLOBIN 29 pg (27-31); MEAN CORPUSCULAR HGB CONC 33 g/dl (33.0-37.0); MEAN PLATELET VOLUME 9.6 fl (7.4-10.4); MONO # 0.4 K/mm3 (0.1-0.6); MONO % 4.3 % (1.7-9.3); PLATELET COUNT 211 K/mm3 (130-400); RED BLOOD COUNT 4.63 M/mm3 (4.10-5.30); REDCELL DISTRIBUTION WIDTH-CV 12.9 % (11.5-14.5)
[2023-03-28 19:13] LABS: ALBUMIN 3.7 gm/dL (3.5-5.0); BILIRUBIN,TOTAL 0.9 mg/dL (0.2-1.2); C-REACTIVE PROTEIN 1.97 mg/dL (0.00-0.50); CALCIUM 9.3 mg/dL (8.4-10.2); CREATININE, serum 0.87 mg/dL (0.57-1.11); POTASSIUM 3.6 mmol/L (3.5-4.5); TOTAL PROTEIN 7.3 gm/dL (6.2-8.1)
[2023-03-28 21:09] LABS: COLLECTION METHOD CLEAN CATCH
[2023-03-28] MEDS ORDERED: ZOFRAN ODT4 MG PO (21:24)
[2023-03-28 21:36] LABS: PH 5.5 (5.0-8.5); URINE APPEARANCE Clear (CLEAR/HAZY); URINE BLOOD Negative (NEGATIVE); URINE COLOR Yellow (YELLOW); URINE GLUCOSE Negative (NEGATIVE); URINE KETONE Negative (NEGATIVE); URINE NITRATE Negative (NEGATIVE); URINE PROTEIN(semi-quant) Negative (NEGATIVE); URINE RBC 0-2 /hpf (0-2); URINE UROBILINOGEN 0.2 E.U/dL (0.2-1.0)
[2023-03-28 21:37] LABS: URINE BACTERIA Rare /hpf (NONE SEEN)
[2023-03-28 22:14] VITALS: BP 122/73; PULSE 91; TEMP 97.7
== END 2023-03-28 22:12 | disposition home or self-care (01) ==
LOC: COL.ER 17:46
PROVIDERS: Nurse Practitioner
DX: K55.069 Acute infarction of intestine, part and extent unspecified (principal); Z91.040 Latex allergy status
CPT/HCPCS: J1170; J2270; J2405; J7030; Q9967